=== PATIENT | female | born 1960 | race Caucasian/White ===

== ENCOUNTER → 2024-03-02 | Outpatient (CLI) | payer SELFPAY ==
--- NOTE | 2024-03-02 12:05 | RAD_ITS ---
STUDY: X-RAY CHEST REASON FOR EXAM: Female, 63 years old. Cough, wheeze TECHNIQUE: PA and lateral views of the chest. COMPARISON: None. FINDINGS: Scattered calcified granulomas. There is no demonstrated pleural abnormality. Normal size heart. Normal mediastinum and samuel. Normal visualized pulmonary arteries. There is atherosclerotic tortuosity of the aortic arch and descending thoracic aorta. There are degenerative changes of the visualized thoracic spine. Normal visualized ribs, clavicles, and shoulders. There is no demonstrated abnormality of the visualized soft tissue structures of the upper abdomen. RAD/Chest PA and Lateral IMPRESSION: No acute abnormality is seen. Electronically Signed: Rusty Fontenot MD at 8:54 EST ,
== END | disposition home or self-care (01) ==
PROVIDERS: PCP Internal Medicine; Referring Provider Internal Medicine; Visit Provider Internal Medicine
DX: R05.9 Cough, unspecified (principal); J06.9 Acute upper respiratory infection, unspecified
CPT/HCPCS: 71046

== ENCOUNTER → 2024-12-12 | Outpatient (CLI) | payer MEDICARE, SELFPAY ==
--- OUTSIDE RECORDS SUMMARY | 2024-12-12 12:46 | XMS RPT_ITS | CCD ---
Author Organization [facility] Care Team Providers Care Fusion Juncture Grinder Name Role Phone Caro Medina Unavailable Emily Boudreaux Primary Care Provider Meka Gray Unavailable Latia Mai Unavailable [phone] Caro Medina Unavailable Caro Medina Unavailable Ministerio, Rosana Cynthia Unavailable [phone] Caro Medina Unavailable EMILY BOUDREAUX Primary Care Unavailable HANS CHUCKY A Attending Unavailable EMILY BOUDREAUX Attending Unavailable EMILY BOUDREAUX Primary Care Unavailable EMILY BOUDREAUX Attending Unavailable EMILY BOUDREAUX Primary Care Unavailable JAMA MAI Attending Unavailabl e EMILY BOUDREAUX Primary Care Unavailable Ministerio, Rosana Cynthia Unavailable Jama Mai Unavailable [facility] Primary Care Provide r Unavailable ZAINA PAREKH Attending Unavailable ZAINA PAREKH Referring Unavailable EMILY BOUDREAUX Primary Care Unavailable Caro Medina MD Unavailable Rosana Mandel MD Cynthia Unavailable Caro Medina MD Unavailable [phone] [facility] Primary Care Provide r Unavailable Cyrus Link DO, Alan Unavailable Cyrus Link DO, Alan Unavailable [phone] [facility] Primary [facility] Unav ailable IVANNA WILKINS Attending Unavailab France Caraballo DO Primary Care Provider Pau KEYES Latia Cabayne Primary Care Provider Adam LOVE, Caro Gold Primary Care Provider Emily Boudreaux DO Primary Care Provider Adam LOVE, Caro Gold Unavailable Ministerio LOVE, Rosana Ramírezeti Unavailable Adam LOVE, Caro Gold Unavailable Anny Nguyen MD Primary Care Provider [phone] [facility] Primary Care Provide r Unavailable Cyrus Link DO, Alan Unavailable Cyrus Link DO, Alan Unavailable [phone] ZHOU MAI Attending Unavailab [facility] Care Unav ailable Monique Tapia Referring Unavailable Monique Tapia Attending Unavailable Monique Tapia Primary Care Unavailable Allergies Allergy Classification Reported Allergen(s) Allergy Type Date of Onset Reaction(s) Facility (14 sources) sulfamethoxazole / trimethoprim; Translations: [SULFAMETHOXAZOLE-T RIMETHOPRIM] Propensity to adverse reactions to drug 03-09-19 15 GI Intolerance [facility] Work Phone: (12 sources) Sulfonamides (Antibiotic); Translations: [SULFA (SULFONAMIDE ANTIBIOTICS)] Propensity to adverse reactions to drug 08-17-19 15 Rash, GI Intolerance [facility] Work Phone: (14 sources) tetracycline; Translations: [TETRACYCLINE] Propensity to adverse reactions to drug 08-17-19 15 GI Intolerance [facility] Work Phone: (14 sources) PROPOXYPHENE N-ACETAMINOPHEN; Translations: [PROPOXYPHENE N-ACETAMINOPHEN] Propensity to adverse reactions to drug 03-09-19 15 GI Intolerance [facility] Work Phone: (15 sources) Clindamycin; Translations: [Unknown] Drug Allergy 12-24-19 18 GI Intolerance [facility] (2 sources) Sulfonamides (Antibiotic) Propensity to adverse reactions to drug 08-17-19 15 GI Intolerance [facility] Medications Current Medications Medication Drug Class(es) Dates Sig (Normalized) Sig (Original) acetaminophen 325 mg / HYDROcodone bitartrate 5 mg oral tablet (1 source) Opioid Agonist Start: 0 End: 0 take 1 tablet by mouth every six hours as needed for pain HYDROcodone-acetamin ophen (NORCO) 5-325 mg per tablet Indications: Nasal pain Take 1 (one) tablet by mouth every 6 (six) hours as needed for pain . 20 tablet 0 03/11/2019 03/14/2019 Active [id number] 200 actuat albuterol 0.09 mg/actuat metered dose inhaler (1 source) beta2-Adrenergic Agonist take 2 puff(s) by inhalation every six hours as needed for wheezing albuterol 90 mcg/actuation inhaler Inhale 2 puffs every 6 (six) hours as needed for wheezing . 0 Active albuterol 90 mcg/actuation inhaler (2 sources) take 2 puff(s) by inhalation every six hours as needed for wheezing albuterol 90 mcg/actuation inhaler Inhale 2 puffs every 6 (six) hours as needed for wheezing . 0 Active amoxicillin 875 mg / clavulanate 125 mg oral tablet (2 sources) Penicillin-class Antibacterial Start: 0 End: 0 take 1 tablet by mouth twice daily amoxicillin-clavulan ate (AUGMENTIN) 875-125 mg per tablet Take 1 (one) tablet by mouth 2 (two) times a day for 5 days . 10 tablet 0 03/10/2019 03/15/2019 Active 90 day estradiol 0.912506 mg/hr vaginal ring (7 sources) Estrogen Start: 8 End: 0 estradiol (ESTRING) 2 mg (7.5 mcg /24 hour) vaginal ring Indications: Menopause Insert 1 (one) ring into the vagina every 3 (three) months. 1 each 3 11/15/2018 11/15/2019 Active fluconazole 150 mg oral tablet (1 source) Azole Antifungal Start: 6 fluconazole (DIFLUCAN) 150 MG tablet One tablet qod x 3. 3 tablet 0 01/14/2016 Active indomethacin 25 mg oral capsule (10 sources) Nonsteroidal Anti-inflammatory Drug take 1 capsule by mouth three times daily as needed for headache indomethacin (INDOCIN) 25 MG capsule Take 25 mg by mouth 3 (three) times a day as needed (HEADACHE) . 0 Active metroNIDAZOLE 500 mg oral tablet (1 source) Nitroimidazole Antimicrobial Start: 9 End: 9 take 1 tablet by mouth twice daily at mealtime metroNIDAZOLE (FLAGYL) 500 MG tablet Take 1 (one) tablet (500 mg total) by mouth 2 (two) times a day with meals for 7 days . 14 tablet 0 01/17/2019 01/24/2019 Active prochlorperazine 10 mg oral tablet (3 sources) Phenothiazine take 5 mg by mouth every six hours as needed for nausea prochlorperazine (COMPAZINE) 10 MG tablet Take 5 mg by mouth every 6 (six) hours as needed for nausea . 0 Active levothyroxine sodium 0.088 mg oral tablet (13 sources) l-Thyroxine Start: 9 End: 1 take 1 tablet by mouth once daily levothyroxine (SYNTHROID, LEVOTHROID) 88 MCG tablet Indications: Hypothyroidism, unspecified type Take 1 (one) tablet (88 mcg total) by mouth once daily . 90 tablet 3 09/14/2019 Active Start: 03-08-2016 take 1 tablet by bessy once daily SYNTHROID 88 mcg tablet Take 1 tablet (88 mcg total) by mouth daily. 90 tablet 3 03/08/2016 Active Start: 01-12-2015 End: 03-08-2016 take 1 tablet by mouth once daily SYNTHROID 88 mcg tablet Take 1 tablet (88 mcg total) by mouth daily. 90 tablet 3 04/03/2015 03/08/2016 Discontinued (Reorder (Suppress CancelRx Message to Pharmacy)) Completed/Discontinued Medications Medication Drug Class(es) Dates Sig (Normalized) Sig (Original) acetaminophen 500 mg oral tablet (1 source) End: 12-24-2015 take 2 tablets by mouth every six hours as needed for pain acetaminophen (TYLENOL) 500 MG tablet Indications: pain Take 500 mg by mouth every 6 (six) hours as needed for pain. 2 tabs prn pain ReasonsPain 0 12/24/2015 Discontinued ascorbic acid 1000 mg oral tablet (8 sources) Vitamin C End: 01-26-2020 take 1 tablet by mouth once daily ascorbic acid, vitamin C, (vitamin C) 1000 MG tablet Take 1,000 mg by mouth daily. 0 01/26/2020 Discontinued (Therapy completed) b complex vitamins capsule (8 sources) End: 01-26-2020 take 1 capsule by mouth once daily b complex vitamins capsule Take 1 capsule by mouth daily. 0 01/26/2020 Discontinued (Therapy completed) take 1 capsule by mouth once tavares ly b complex vitamins capsule Take 1 capsule by mouth daily. 0 Active cyclobenzaprine hydrochloride 10 mg oral tablet (1 source) Muscle Relaxant Start: 03-09-2014 End: 08-02-2015 take 1 tablet by mouth once daily cyclobenzaprine (FLEXERIL) 10 MG tablet Indications: Back pain Take 1 tablet (10 mg total) by mouth daily. Send to Jeff please 30 tablet 1 03/09/2014 08/02/2015 Discontinued (Reorder (Suppress CancelRx Message to Pharmacy)) diclofenac sodium 0.01 mg/mg topical gel (8 sources) Nonsteroidal Anti-inflammatory Drug Start: 06-16-2018 End: 01-26-2020 diclofenac sodium 1 % Gel Indications: Polyarthralgia Apply 2 (two) g topically 4 (four) times a day . 100 g 3 06/16/2018 01/26/2020 Discontinued (Therapy completed) Folic Acid (8 sources) End: 01-26-2020 FOLIC ACID ORAL Take by mouth. 0 01/26/2020 Discontinued (Therapy completed) FOLIC ACID ORAL Take by mouth. 0 Active oxyCODONE hydrochloride 5 mg oral tablet (1 source) Opioid Agonist Start: 12-19-2014 End: 12-24-2015 take 1 tablet by mouth every eight hours as needed for pain oxyCODONE (ROXICODONE) 5 MG immediate release tablet Take 1 tablet (5 mg total) by mouth every 8 (eight) hours as needed for pain 90 tablet 0 12/19/2014 12/24/2015 Discontinued phenylephrine hydrochloride 5 mg/ml nasal spray (1 source) alpha-1 Adrenergic Agonist Start: 03-10-2019 End: 03-10-2019 phenylephrine (ESTELA-SYNEPHRINE) 0.5 % nasal spray 2 spray promethazine hydrochloride 25 mg oral tablet (3 sources) Phenothiazine Start: 03-12-2019 End: 03-11-2020 take 1 tablet by mouth every six hours as needed for nausea and nausea promethazine (PHENERGAN) 25 MG tablet Indications: Nausea Take 1 (one) tablet (25 mg total) by mouth every 6 (six) hours as needed for nausea . 30 tablet 0 03/12/2019 01/26/2020 Discontinued (Alternate therapy) 1000 ml sodium chloride 9 mg/ml injection (1 source) Start: 01-27-2020 End: 01-27-2020 sodium chloride 0.9% (NS) Problems Active Problems Problem Classification Problem Date Documented Date Episodic/Chronic Acquired foot deformities (1 source) Acquired bilateral pes planus; Translations: [Flat feet] Diseases of white blood cells (11 sources) Leukopenia; Translations: [Neutropenic disorder] Onset: 03-02-2019 03-02-2019 Chronic Disorders of lipid metabolism (12 sources) Hyperlipidemia; Translations: [Hyperlipidemia, unspecified] Onset: 03-09-2015 03-09-2015 Chronic Immunizations and screening for infectious disease (2 sources) Encounter for screening for human papillomavirus (HPV); Translations: [Encounter for screening for human papillomavirus (HPV)] Onset: 01-11-2024 Episodic Other connective tissue disease (1 source) Contracture of right Achilles tendon; Translations: [Achilles tendon contracture, right] Other connective tissue disease (1 source) Tendinitis of right posterior tibial tendon; Translations: [Posterior tibial tendinitis of right leg] Other ear and sense organ disorders (1 source) Impacted cerumen in right ear; Translations: [Impacted cerumen, right ear] Episodic Other screening for suspected conditions (not mental disorders or infectious disease) (13 sources) Abnormal cervical Papanicolaou smear; Translations: [Unspecified abnormal cytological findings in specimens from cervix uteri] Onset: 10-11-2009 Resolved: 12-23-2017 12-23-2017 Episodic Other upper respiratory disease (2 sources) Bleeding from nose; Translations: [Nosebleed] Episodic Sexually transmitted infections (not HIV or hepatitis) (2 sources) Cervical high risk human papillomavirus (HPV) DNA test positive; Translations: [Cervical high risk human papillomavirus (HPV) DNA test positive] Onset: 01-11-2024 Episodic Spondylosis; intervertebral disc disorders; other back problems (12 sources) Degeneration of intervertebral disc; Translations: [Degeneration of intervertebral disc] Onset: 03-09-2014 03-09-2014 Chronic Thyroid disorders (12 sources) Hypothyroidism; Translations: [Hypothyroidism, unspecified] Onset: 03-09-2014 03-09-2014 Chronic Unclassified (12 sources) Patient encounter status; Translations: [Encounter for medical examination to establish care] Onset: 12-23-2017 12-23-2017 Unclassified (1 source) Cough, unspecified; Translations: [Cough, unspecified] Onset: 03-24-2024 Past or Other Problems Problem Classification Problem Date Documented Date Episodic/Chronic Fracture of lower limb (20 sources) Fracture of ankle; Translations: [Fracture of tibial plateau] Onset: 08-16-2014 Resolved: 12-23-2017 01-14-2016 Episodic Genitourinary symptoms and ill-defined conditions (12 sources) Blood in urine; Translations: [Hematuria, unspecified] Onset: 03-25-2011 03-26-2016 Episodic Headache, including migraine (12 sources) Benign exertional headache; Translations: [Primary exertional headache] Onset: 12-24-2015 12-24-2015 Episodic Inflammatory diseases of female pelvic organs (1 source) Vaginitis; Translations: [Vaginosis] Episodic Malaise and fatigue (12 sources) Asthenia; Translations: [Weakness] Onset: 03-27-2016 Resolved: 12-23-2017 03-27-2016 Episodic Other and unspecified benign neoplasm (12 sources) Benign neoplasm of colon; Translations: [Benign neoplasm of colon, unspecified] Onset: 03-09-2014 Resolved: 12-23-2017 03-09-2014 Episodic Other connective tissue disease (13 sources) Tibialis tendinitis; Translations: [Pain in limb] Onset: 05-03-2012 Resolved: 12-23-2017 03-09-2014 Episodic Other connective tissue disease (11 sources) Pain in limb; Translations: [Pain in unspecified limb] Onset: 03-23-2014 Resolved: 12-23-2017 12-23-2017 Episodic Other female genital disorders (1 source) Atypical glandular cells on cervical Papanicolaou smear; Translations: [Abnormal glandular Papanicolaou smear of cervix] Onset: 10-11-2009 03-09-2014 Episodic Other female genital disorders (11 sources) Vaginal discharge; Translations: [Other specified noninflammatory disorders of vagina] Onset: 01-18-2019 02-09-2019 Episodic Other nervous system disorders (12 sources) Personal history of other diseases of the nervous system and sense organs; Translations: [H/O: glaucoma] Onset: 03-09-2015 03-09-2015 Episodic Other non-traumatic joint disorders (2 sources) Ankle pain; Translations: [Knee pain] Onset: 01-14-2016 01-14-2016 Episodic Other non-traumatic joint disorders (9 sources) Knee pain; Translations: [Chronic pain of left knee] Onset: 03-27-2016 03-27-2016 Episodic Other non-traumatic joint disorders (11 sources) Chronic ankle pain; Translations: [Pain in left ankle and joints of left foot] Onset: 01-14-2016 01-14-2016 Episodic Other non-traumatic joint disorders (2 sources) Pain in left knee; Translations: [Pain in joint, lower leg] Onset: 03-27-2016 03-27-2016 Episodic Skin and subcutaneous tissue infections (20 sources) Abscess of buttock; Translations: [Cutaneous abscess of buttock] Onset: 03-09-2015 Resolved: 01-14-2016 01-14-2016 Episodic Spondylosis; intervertebral disc disorders; other back problems (12 sources) Low back pain; Translations: [Low back pain] Onset: 01-14-2016 Resolved: 12-23-2017 01-14-2016 Episodic Sprains and strains (11 sources) Strain of neck muscle; Translations: [Strain of muscle, fascia and tendon at neck level, initial encounter] Onset: 03-05-2018 Resolved: 03-02-2019 03-05-2018 Episodic Unclassified (12 sources) Family history of osteoporosis; Translations: [Family history of osteoporosis] Onset: 07-14-2009 03-09-2014 Episodic Results Test Name Value Interpretation Reference Range Facility Chest PA and Lateralon 03-02 Chest PA and Lateral [facility] [address] [place] [address] Chest PA and Lateral MR#: [id number] Acct: [id number] Name: TITO DE LA CRUZ Rep #: [id number] : 1960 F 63 From: Rusty haines MD PCP: Dr. Monique Tapia MD Status: REG CLI Study: Chest PA and Lateral Date of Exam: 03/02/24 Exam# [id number] Ordering Dr: Monique Tapia MD [id number] STUDY: X-RAY CHEST REASON FOR EXAM: Female, 63 years old. Cough, wheeze TECHNIQUE: PA and lateral views of the chest. COMPARISON: None. FINDINGS: Scattered calcified granulomas. There is no demonstrated pleural abnormality. Normal size heart. Normal mediastinum and samuel. Normal visualized pulmonary arteries. There is atherosclerotic tortuosity of the aortic arch and descending thoracic aorta. There are degenerative changes of the visualized thoracic spine. Normal visualized ribs, clavicles, and shoulders. There is no demonstrated abnormality of the visualized soft tissue structures of the upper abdomen. RAD/Chest PA and Lateral IMPRESSION: No acute abnormality is seen. Electronically Signed: Rusty Fontenot MD at 8:54 EST , CC: Dr. Monique Tapia MD Residential Glazier: Signed Normal [facility] THINPREP PAP SMEARon 024 THINPREP PAP SMEAR Gynecologic Cytology Report Case: [id number] Authorizing Provider: Zhou Mai MD Collected: 01/06/2024 Ordering Location: [facility] Received: 01/11/2024 09:33 AM Hospital Lab First Screen: [place], TECHNOLOGIST Pathologist: Jamaal Crespo MD Specimen: THINPREP PAP SMEAR, Cervix Satisfactory for evaluation; endocervical/transfor mation zone component present Atypical squamous cells of undetermined significance Acute inflammation The Pap smear is a screening test for the detection of cervical cancer and its precursor lesions. False positive and false negative results can occur. The test should be performed at regular intervals, and positive results should be confirmed before definitive therapy. Additional testing methods may be helpful in detecting abnormalities or in clinical management. The specimen has been analyzed by the ThinPrep imaging system, an automated imaging and review system which assists the laboratory in evaluating cells on ThinPrep tests. Following automated imaging selected hayes from every slide are reviewed by a tobacco stripper hand. Specimen processing and Primary Screening performed at: [facility] - [address] [place] [address] HPV 16 : Negative HPV 18 : Negative HPV, Other HR Types : Positive Assay performed using Lindsey Gumaro 4800 system utilizing Real-Time PCR to amplify target HPV DNA. This system specifically identifies HPV16 and HPV18 while concurrently detecting the other twelve high risk types (31,33,35,39,45,51,52 ,56,58,59,66,68). These HPV results have been electronically added to this report as an aid for patient management. HPV testing performed at: [facility] - [address] [place] [address] - Yes Abnormal [facility] Comment on above: Performed By: #### [id number] #### [facility] [address] [address] Carlos Alberto Miranda M.D. [id number] [facility] [address] [place] [address] Jonah Disla M.D. [id number] Ear wax removalOrdered By: Suzie Perez on 10-22-2021 Interpretation and review of laboratory results Normal [facility] SCAN OTHER ORDERSon 01-17-20 Ordered by an unspecified provider. [facility] Mammography Screening Bilate ralon 03-29-2019 No mammographic evidence of malignancy. BIRADS: BIRADS - CATEGORY 1 Negative, no evidence of malignancy. Normal interval follow-up is recommended in 12 months. OVERALL ASSESSMENT - NEGATIVE A letter of notification will be sent to the patient regarding the results. [facility], along with the National [employer] Network, the [employer], and [facility], recommend annual screening mammograms for women age 40 and older. Workstation ID: [id number] [facility] EXAMINATION: BILATERAL DIGITAL SCREENING MAMMOGRAM 03/29/2019 TECHNIQUE: CC and MLO views of the left and right breasts were obtained. Computer aided detection was utilized in the interpretation of this exam. COMPARISON: 10/30/2016, 07/27/2013 HISTORY: Screening. FINDINGS: There are scattered areas of fibroglandular density. There is no new dominant mass, suspicious microcalcification, or area of architectural distortion. [facility] Hemoglobin and Hematocriton 03-10-2019 Hematocrit (Bld) [Volume fraction] 39.9 % 36 - 46 % [facility] Hemoglobin (Bld) [Mass/Vol] 13.0 g/dL 12 - 16 g/dL [facility] Interpretation and review of laboratory results Normal [facility] PT/INRon 03-10-2019 INR Coag (PPP) [Relative time] 0.9 {INR} [facility] Interpretation and review of laboratory results Normal [facility] PT Coag (PPP) [Time] 12.[address] [facility] During the induction phase of oral anticoagulation, the INR may not reflect the anticoagulation status of the patient. Therapeutic ranges for INR's are: Most clinical situations: INR 2.0-3.0 Mechanical Prosthetic Valve: INR 2.5-3.5 Critical: INR >5.0 [facility] REFLEX ONLY -- HIGH RISK HPV WITH GENOTYPE 16,18on 03-02-2019 HPV 16 DNA CHARLES+probe Ql (Cvx) Negative Negative [facility] HPV 16+18+31+33+35+39+45 +51+52+56+58+59+68 DNA Probe+sig amp Ql (Cvx) Positive Abnormal Negative [facility] HPV 18 DNA CHARLES+probe Ql (Cvx) Negative Negative [facility] Interpretation and review of laboratory results Abnormal [facility] Assay performed usin g [employer] Gumaro 4800 system utilizing Real-Time PCR to amplify target HPV DNA. This system specifically identifies HPV16 and HPV18 while concurrently detecting the other twelve high risk types (31,33,35,39,45,51,52 ,56,58,59,66,68). [facility] VAGINITIS DNA PROBESon 01-18 Minerva sp DNA Probe+sig amp Ql (Vag fld) Negative Negative [facility] G. vaginalis DNA Probe+sig amp Ql (Vag fld) Negative Negative [facility] Interpretation and review of laboratory results Normal [facility] T. vaginalis DNA Probe+sig amp Ql (Vag fld) Negative Negative [facility] POC Urinalysis Dipstick, Aut oon 01-17-2019 Bilirubin Ql (U) Negative Negative [facility] Glucose Ql (U) Negative Normal, Negative mg/dL [facility] Hemoglobin Ql (U) Trace-intact Abnormal Negative [facility] Interpretation and review of laboratory results Abnormal [facility] Ketones Ql (U) Negative Negative mg/dL [facility] Leukocyte esterase Test strip Ql (U) Negative Negative [facility] Nitrite Ql (U) Negative Negative [facility] pH (U) 6.0 [pH] [facility] Protein Ql (U) Negative Negative mg/dL [facility] alth Specific gravity (U) [Rel density] 1.010 [facility] Urobilinogen Qn (U) 2.0 mg/dL <2.0, 0. 2, Normal, Negative, 1.0, 2.0, <1.0 [facility] MR Ankle Right Without Contr mylene 11-12-2018 1. Tenosynovitis of the posterior tibialis tendon sheath with underlying partial tearing and tendinosis of the posterior tibialis tendon. There is also fluid signal seen within the spring ligament suggesting partial tearing. The majority of the fibers appear intact. 2. Mild tendinosis of the Achilles tendon without discrete tear identified. 3. Mild hindfoot and midfoot osteoarthritis with small subtalar effusion. Workstation ID: [id number] [facility] EXAMINATION: MRI OF THE RIGHT ANKLE WITHOUT CONTRAST 11/12/2018 TECHNIQUE: Multiplanar multisequence MRI of the right ankle was performed without the administration of intravenous contrast. COMPARISON: None. HISTORY: ORDERING SYSTEM PROVIDED HISTORY: Posterior tibial tendinitis of right leg; TECHNOLOGIST PROVIDED HISTORY: Illness/Other Acuity: Acute Reason for Exam: Achilles tendon contracture, right; Flat feet; Posterior tibial tendinitis of right leg Type of Encounter: Initial Additional signs and symptoms: right ankle pain and swelling ORDERING SYSTEM PROVIDED DIAGNOSIS CODES: M76.821 Posterior tibial tendinitis of right leg M21.41 Flat feet M21.42 Flat feet M67.01 Achilles tendon contracture, right FINDINGS: SYNDESMOTIC LIGAMENTS: The anterior-inferior tibiofibular ligament, interosseous membrane and posterior-inferior tibiofibular ligaments are normal. LATERAL COLLATERAL LIGAMENT COMPLEX: The anterior talofibular ligament, calcaneofibular ligament and posterior talofibular ligaments are without acute abnormality. DELTOID LIGAMENT COMPLEX: The superficial and deep components of the deltoid ligament complex are intact. SINUS TARSI AND SPRING LIGAMENT: Normal fat signal within the sinus tarsi. Fluid signal is present within the spring ligament which is suspicious for partial tearing. The majority of the fibers are intact. MEDIAL TENDONS: Partial tearing of the posterior tibialis tendon superimposed on tendinosis. There is also tenosynovitis of the posterior tibialis tendon sheath and surrounding soft tissue edema. Flexor digitorum longus and flexor hallucis longus tendons are intact. LATERAL TENDONS: The peroneus longus and brevis tendons are intact. ANTERIOR TENDONS: The tibialis anterior, extensor hallucis longus and extensor digitorum longus tendons are normal in position, morphology and signal. ACHILLES TENDON: The Achilles tendon demonstrates intrasubstance signal along its mid to distal portion compatible with tendinosis. No significant fluid identified within the retrocalcaneal bursa. PLANTAR FASCIA: The medial and lateral bundles of the plantar fascia are normal in morphology and signal. There is no evidence of acute plantar fasciitis or tear. No evidence of plantar fascial nodules. Small plantar calcaneal heel spur. TARSAL TUNNEL: There are no obstructing lesions within the tarsal tunnel. BONE MARROW: No osseous contusion, fracture, or suspicious marrow occupying lesion identified. JOINT SPACES: Alignment of the joint is anatomic. Mild hindfoot and midfoot osteoarthritis. Small subtalar effusion. Cystic change along the lateral aspect of the talonavicular joint (images 16 and 17 series 4; images 19 through 22 series 8) which are most compatible with small ganglion/synovial cysts. [facility], Rad In Fujdarrel Speechq - 11/12/2018 2:22 PM EDT EXAMINATION: MRI OF THE RIGHT ANKLE WITHOUT CONTRAST 11/12/2018 TECHNIQUE: Multiplanar multisequence MRI of the right ankle was performed without the administration of intravenous contrast. COMPARISON: None. HISTORY: ORDERING SYSTEM PROVIDED HISTORY: Posterior tibial tendinitis of right leg; TECHNOLOGIST PROVIDED HISTORY: Illness/Other Acuity: Acute Reason for Exam: Achilles tendon contracture, right; Flat feet; Posterior tibial tendinitis of right leg Type of Encounter: Initial Additional signs and symptoms: right ankle pain and swelling ORDERING SYSTEM PROVIDED DIAGNOSIS CODES: M76.821 Posterior tibial tendinitis of right leg M21.41 Flat feet M21.42 Flat feet M67.01 Achilles tendon contracture, right FINDINGS: SYNDESMOTIC LIGAMENTS: The anterior-inferior tibiofibular ligament, interosseous membrane and posterior-inferior tibiofibular ligaments are normal. LATERAL COLLATERAL LIGAMENT COMPLEX: The anterior talofibular ligament, calcaneofibular ligament and posterior talofibular ligaments are without acute abnormality. DELTOID LIGAMENT COMPLEX: The superficial and deep components of the deltoid ligament complex are intact. SINUS TARSI AND SPRING LIGAMENT: Normal fat signal within the sinus tarsi. Fluid signal is present within the spring ligament which is suspicious for partial tearing. The majority of the fibers are intact. MEDIAL TENDONS: Partial tearing of the posterior tibialis tendon superimposed on tendinosis. There is also tenosynovitis of the posterior tibialis tendon sheath and surrounding soft tissue edema. Flexor digitorum longus and flexor hallucis longus tendons are intact. LATERAL TENDONS: The peroneus longus and brevis tendons are intact. ANTERIOR TENDONS: The tibialis anterior, extensor hallucis longus and extensor digitorum longus tendons are normal in position, morphology and signal. ACHILLES TENDON: The Achilles tendon demonstrates intrasubstance signal along its mid to distal portion compatible with tendinosis. No significant fluid identified within the retrocalcaneal bursa. PLANTAR FASCIA: The medial and lateral bundles of the plantar fascia are normal in morphology and signal. There is no evidence of acute plantar fasciitis or tear. No evidence of plantar fascial nodules. Small plantar calcaneal heel spur. TARSAL TUNNEL: There are no obstructing lesions within the tarsal tunnel. BONE MARROW: No osseous contusion, fracture, or suspicious marrow occupying lesion identified. JOINT SPACES: Alignment of the joint is anatomic. Mild hindfoot and midfoot osteoarthritis. Small subtalar effusion. Cystic change along the lateral aspect of the talonavicular joint (images 16 and 17 series 4; images 19 through 22 series 8) which are most compatible with small ganglion/synovial cysts. IMPRESSION: 1. Tenosynovitis of the posterior tibialis tendon sheath with underlying partial tearing and tendinosis of the posterior tibialis tendon. There is also fluid signal seen within the spring ligament suggesting partial tearing. The majority of the fibers appear intact. 2. Mild tendinosis of the Achilles tendon without discrete tear identified. 3. Mild hindfoot and midfoot osteoarthritis with small subtalar effusion. Workstation ID: [id number] [facility] Vital Signs Date Time Vital Sign Value Performing Clinician Fabrizio quintana 10-22-2021 18:02-0400 Body mass index (BMI) [Ratio] 28.98 kg/m2 Ivanna Tokarski PA-C Work Phone: [facility] 10-22-2021 18:02-0400 Body temperature 97.7 [degF] Ivanna Tokarski PA-C Work Phone: [facility] 10-22-2021 18:02-0400 Body weight 83.92 kg Ivanna Tokarski PA-C Work Phone: [facility] 10-22-2021 18:02-0400 Diastolic blood pressure 64 mm[Hg] Ivanna Tokarski PA-C Work Phone: [facility] 10-22-2021 18:02-0400 Heart rate 66 /min Ivanna Tokarski PA-C Work Phone: [facility] 10-22-2021 18:02-0400 Respiratory rate 16 /min Ivanna Tokarski PA-C Work Phone: [facility] 10-22-2021 18:02-0400 SaO2% (BldA) [Mass fraction] 98 % Ivanna Tokarski PA-C Work Phone: [facility] 10-22-2021 18:02-0400 Systolic blood pressure 112 mm[Hg] Ivanna Tokarski PA-C Work Phone: [facility] 01-27-2020 08:35-0500 Body Temperature 97 [degF] Amira Allison [facility] 01-27-2020 08:35-0500 BP Diastolic 74 mm[Hg] [facility] 01-27-2020 08:35-0500 BP Systolic 108 mm[Hg] [facility] 01-27-2020 08:35-0500 Pulse (Heart Rate) 48 /min [facility] 01-27-2020 08:35-0500 Pulse [facility] 99 % [facility] 01-27-2020 08:35-0500 Respiratory Rate 9 /min [facility] 01-27-2020 07:11-0500 BMI (Body Mass Index) 28.19 kg/m2 [facility] 01-27-2020 07:11-0500 Body weight 81.65 kg [facility] 01-27-2020 07:11-0500 Height 170.2 cm [facility] 03-12-2019 11:28-0500 BMI (Body Mass Index) 28.19 kg/m2 [facility] 03-12-2019 11:28-0500 Body Temperature 98.1 [degF] [facility] 03-12-2019 11:28-0500 Body weight 81.65 [facility] 03-12-2019 11:28-0500 BP Diastolic 87 mm[Hg] [facility] 03-12-2019 11:28-0500 BP Systolic 130 mm[Hg] [facility] 03-12-2019 11:28-0500 Height 170.2 cm [facility] 03-12-2019 11:28-0500 Pulse (Heart Rate) 68 /min [facility] 03-12-2019 11:28-0500 Pulse Oximetry 93 % [facility] 03-12-2019 11:28-0500 Respiratory Rate 16 /min [facility] 03-10-2019 11:09-0500 BP Diastolic 79 mm[Hg] [facility] Comment on above: Simultaneous filing. User may not have seen previous data. 03-10-2019 11:09-0500 BP Systolic 122 mm[Hg] [facility] Comment on above: Simultaneous filing. User may not have seen previous data. 03-10-2019 09:54-0500 Body Temperature 97.81 [degF] [facility] 03-10-2019 09:54-0500 Pulse (Heart Rate) 75 /min Rupa [facility] 03-10-2019 09:54-0500 Pulse Oximetry 100 % Rupa [facility] 03-10-2019 09:54-0500 Respiratory Rate 18 /min Rupa [facility] 03-04-2019 15:30-0500 BMI (Body Mass Index) 29.13 kg/m2 Jama Mai [facility] 03-04-2019 15:30-0500 Body weight 84.37 kg Jama Mai [facility] 03-04-2019 15:30-0500 BP Diastolic 90 mm[Hg] Jama Mai [facility] 03-04-2019 15:30-0500 BP Systolic 133 mm[Hg] Jama Mai [facility] 03-04-2019 15:30-0500 Height 170.2 cm Jama Mai [facility] 03-04-2019 15:30-0500 Pulse (Heart Rate) 68 /min Jama Mai [facility] 03-04-2019 15:30-0500 Pulse Oximetry 96 % Jama Mai [facility] 03-01-2019 08:25-0500 BMI (Body Mass Index) 29.13 kg/m2 03-01-2019 08:25-0500 Body Temperature 98.49 [degF] 03-01-2019 08:25-0500 Body weight 84.37 kg 03-01-2019 08:25-0500 BP Diastolic 65 mm[Hg] 03-01-2019 08:25-0500 BP Systolic 92 mm[Hg] 03-01-2019 08:25-0500 Pulse (Heart Rate) 66 /min 03-01-2019 08:25-0500 Pulse Oximetry 95 % 03-01-2019 08:25-0500 Respiratory Rate 16 /min 01-17-2019 15:36-0500 BMI (Body Mass Index) 29.29 kg/m2 [facility] 01-17-2019 15:36-0500 Body Temperature 97.7 [degF] [facility] 01-17-2019 15:36-0500 [facility] 01-17-[facility] 15:36-0500 BP Diastolic 86 mm[Hg] Chucky Blood [facility] 01-17-2019 15:36-0500 BP Systolic 124 mm[Hg] [facility] 01-17-2019 15:36-0500 Pulse (Heart Rate) 60 /min [facility] 01-17-2019 15:36-0500 Pulse Oximetry 99 % [facility] Encounters Encounter Date Encounter Type Care Provider Facility Start: 03-02-2024 End: 03-02-2024 ambulatory Monique Regina Facility:[facility] Start: 01-11-2024 End: 01-11-2024 ambulatory ZHOU MAI [facility] Start: 10-22-2021 End: 10-22-2021 ambulatory [facility] Start: 10-22-2021 End: 10-22-2021 Office outpatient visit 15 minutes Ivanna Wilkins PA-C Work Phone: [facility] Comment on above: Right ear impacted c erumen (Primary Dx) Start: 04-25-2020 End: 04-25-2020 Orders Only Karen Esquivel Work Phone: [facility] Start: 01-27-2020 End: 01-27-2020 Subsequent hospital visit by physician Amira Allison Work Phone: [facility] Start: 03-29-2019 End: 03-30-2019 ambulatory ZAINA PAREKH [facility] Start: 03-29-2019 End: 03-29-2019 Subsequent hospital visit by physician Zaina Parekh Work Phone: [facility] Comment on above: Healthcare jimi chadwick Start: 03-12-2019 End: 03-12-2019 Emergency department patient visit Randee Crews Work Phone: [facility] Comment on above: Encounter for remova l of nasal packing (Primary Dx) Start: 03-10-2019 End: 03-10-2019 Emergency department patient visit Rupa Soto Work Phone: [facility] Comment on above: Epistaxis (Primary D x) Start: 03-04-2019 End: 03-04-2019 Patient encounter procedure JAMA FRANK PAU [facility] Start: 03-04-2019 End: 03-04-2019 Office outpatient visit 15 minutes Jama Mai Work Phone: [facility] Comment on above: Nosebleed (Primary D x) Start: 03-02-2019 Patient encounter status Ivanna Wilkins PA-C Work Phone: [facility] Start: 03-01-2019 End: 03-01-2019 Patient encounter procedure EMILY MARQUESCKER [facility] Start: 03-01-2019 End: 03-01-2019 Periodic preventive med est patient 40-64yrs Emily Boudreaux Work Phone: [facility] [place] Comment on above: Healthcare maintenan ce (Primary Dx); Other neutropenia (HCC); Leukopenia, unspecified type Start: 02-22-2019 [facility] Start: 01-17-2019 End: 01-17-2019 Patient encounter procedure EMILY [facility] Start: 01-17-2019 End: 01-17-2019 Office outpatient visit 15 minutes Chucky A Blood Work Phone: [facility] Comment on above: Vaginosis (Primary D x); Vaginal discharge Start: 11-12-2018 End: 11-12-2018 Subsequent hospital visit by physician Jonah Rodriguez Work Phone: [facility] Comment on above: Posterior tibial ten dinitis of right leg; Flat feet; Achilles tendon contracture, right Start: 10-30-2016 End: 10-30-2016 Ambulatory Caro Medina Work Phone: [facility] Start: 04-03-2015 Catalina ochoa DO Work Phone: [facility] Procedures Date Procedure Procedure Detail Performing Clinician Start: 10-22-2021 EAR WAX REMOVAL Ivanna Tripathi Franky ROLLE Work Phone: Start: 08-05-2021 Microscopic observat ion [Identifier] in Cervix by Cyto stain Ivanna Franky ROLLE Work Phone: Start: 09-14-2020 Microalbumin [Mass/v olume] in Urine by Test strip Ivanna Wilkins PA-C Work Phone: Start: 01-27-2020 End: 01-27-2020 Colonoscopy Amira Patlola Red [place] Work Phone: Start: 01-17-2020 SCAN OTHER ORDERS Provi erick Not In System Start: 03-29-2019 MG Breast - bilatera l screening Emily Boudreaux Work Phone: Start: 03-29-2019 Mammography Darciram R glenny Start: 03-10-2019 Hemoglobin and Hemat ocrit panel - Blood Rupa Chandra [employer] Work Phone: Start: 03-10-2019 INR in Platelet poor plasma by Coagulation assay Rupa Chandra [employer] Work Phone: Start: 03-01-2019 Iadna human papillom avirus types 16 & 18 only Emily Boudreaux Work Phone: Start: 03-01-2019 Microscopic observat ion [Identifier] in Cervix by Cyto stain Zaina Parekh Start: 01-17-2019 Urnls dip stick/tabl et rgnt auto w/o microscopy Chucky A Blood Work Phone: Start: 01-17-2019 Gardnerella vaginali s rRNA assay [facility] Work Phone: Start: 11-12-2018 Mri any jt lower ext rem w/o contrast matrl Jonah Rodriguez Work Phone: Start: 01-09-2017 Microscopic observat ion [Identifier] in Cervix by Cyto stain [facility] Start: 11-09-2016 Microscopic observat ion [Identifier] in Cervix by Cyto stain Jonah Rodriguez Start: 10-30-2016 Mammography Jonah tucker Plan of Treatment Date Care Activity Detail Author Start: 08-05-2026 Screening for malign ant neoplasm of cervix Pap Smear [facility] Start: 03-19-2026 Tetanus vaccination [facility] Start: 01-26-2025 Screening for malign ant neoplasm of colon [facility] Start: 03-01-2024 Screening for malign ant neoplasm of cervix PAP SMEAR [facility] Start: 01-09-2022 Screening for malign ant neoplasm of cervix PAP SMEAR [facility] Start: 10-24-2021 Influenza vaccination Sequenti al Influenza Vaccine (#1) [facility] Start: 09-14-2021 Urine screening for protein Urine Microalbumin [facility] Start: 09-13-2021 History and physical examination, annual for health maintenance Wellness Visit [facility] Start: 03-29-2020 Screening for malign ant neoplasm of breast Mammogram [facility] Start: 03-29-2020 Screening mammography Mammogram [facility] Start: 03-01-2020 History and physical examination, annual for health maintenance Wellness Visit [facility] Start: 01-10-2020 Screening for malign ant neoplasm of cervix PAP SMEAR [facility] Start: 11-10-2019 Screening for malign ant neoplasm of cervix PAP SMEAR [facility] Start: 10-25-2019 Influenza vaccinatio n given Sequential Influenza Vaccine (#1) [facility] Start: 12-16-2018 Screening colonoscopy COLONOSCOPY O [facility] Work Phone: Start: 12-16-2018 Screening for malign ant neoplasm of colon Colorectal Cancer Screening: Colonoscopy [facility] Start: 10-24-2018 Influenza vaccinatio n given SEQUENTIAL INFLUENZA VACCINE (#1) [facility] Start: 10-30-2017 Screening mammography Mammogram O [facility] Start: 03-19-2017 History and physical examination, annual for health maintenance Wellness Visit [facility] Start: 10-24-2016 Influenza vaccination SEQUENTI AL INFLUENZA VACCINE (#1) [facility] Work Phone: Start: 07-11-2009 Administration of he rpes zoster vaccine Zoster Vaccines (1 of 2) [facility] Start: 07-11-2009 Screening for malign ant neoplasm of colon [facility] Start: 03-05-2002 Screening for malign ant neoplasm of cervix PAP SMEAR [facility] Work Phone: Start: 07-11-1978 Administration of he rpes zoster vaccine Zoster Vaccines (1 of 2) [facility] Start: 1975 COVID-19 Vaccine (1 of 2) COVI D-19 Vaccine (1 of 2) [facility] Start: 07-11-1974 HIV screening HIV Screening [facility] Start: 1971 Adolescent depressio n screening assessment Depression Screening (PHQ9) [facility] Start: 1971 Depression screening using PHQ-9 (Patient Health Questionnaire 9) score Depression Screening (PHQ-2/9) [facility] Start: 07-11-1965 Pneumococcal Vaccine : Ped or At-Risk (1 - PCV) Pneumococcal Vaccine: Ped or At-Risk (1 - PCV) [facility] Start: 01-12-1960 COVID-19 Vaccine (#1) COVID-19 Vacci ne (#1) [facility] Start: 1959 Depression screening using PHQ-9 (Patient Health Questionnaire 9) score DEPRESSION SCREENING (PHQ9) [facility] Start: 1959 Screening for malign ant neoplasm of colon [facility] Start: 1960 HEPATITIS C SCREENING HEPATITIS C SC REENING [facility] Work Phone: Start: 1960 Tetanus vaccination TETANUS EVERY 10 YR [facility] Work Phone: End: 03-01-2020 Complete blood count with white cell differential, manual CBC and Differential Lab Routine Other neutropenia (HCC) 1 Occurrences starting 03/01/2019 until 03/01/2020 [facility] Comment on above: 1 Occurrences starti ng 03/01/2019 until 03/01/2020 End: 10-30-2016 MG Breast - bilateral screening Mammography Screening Bilateral Routine Visit for screening mammogram Once for 1 Occurrences starting 10/30/2016 until 10/30/2016 [facility] Work Phone: MG Breast - bilatera l screening Mammography Screening Bilateral Routine Visit for screening mammogram 10/30/2016 2:29 PM EDT [facility] Work Phone: End: 04-29-2020 MG Breast - bilateral screening Mammography Screening Bilateral Imaging Routine Healthcare maintenance 1 Occurrences starting 03/01/2019 until 04/29/2020 [facility] Comment on above: 1 Occurrences starti ng 03/01/2019 until 04/29/2020 Microscopic examinat ion of vaginal Papanicolaou smear Thinprep Pap Smear Pathology and Cytology Routine Healthcare maintenance 03/01/2019 9:28 AM EST [facility] Immunizations Immunization Date Immunization Notes Care Provider Elier orta 03-01-2019 varicella-zoster gE (SHINGRIX-KIT) 0.5 mL Emily Boudreaux [facility] Payers Date Payer Category Payer Self-pay 2024 Unknown [id number] 2021 Unknown [id number] 2014 Unknown [id number] 2014 Unknown [facility] PREFERRED - ASSOCIATE PLAN xxxxxxxxx 2014-Present xxxxxxxxx [id number] 2014 Unknown [facility] EM[employer]OYEE PLAN - PREFERRED [id number] 2014-Present [id number] 2014 Unknown [id number] 1959 Unknown [id number] 3 1959 Unknown [id number] 3 1959 Unknown [id number] 3 1959 Unknown [id number] 3 1959 Unknown [id number] 2 1959 Unknown [id number] 3 Unknown [id number] 2 Social History Date Type Detail Facility Start: 03-09-2015 End: 10-30-2016 Tobacco smoking status NHIS Never smoker [facility] Work Phone: Start: 1960 Sex Assigned At Not on file O [employer] Work Phone: Start: 12-23-2017 End: 01-26-2020 Tobacco smoking status NHIS Former smoker [facility] Start: 03-09-2015 End: 12-23-2017 Alcohol intake Current drinker of alcohol (finding) [facility] Start: 11-23-2017 Tobacco Comment quit in the [facility] Start: 11-07-2014 Alcohol Comment Weekends, a fe w drinks a month [facility] End: 02-23-1979 History of tobacco use Current smoker [facility] Start: 03-09-2015 End: 01-27-2020 Cigarettes smoked current (pack per day) - Reported [facility] Start: 03-09-2015 End: 01-27-2020 Tobacco use and exposure Never used [facility] Start: 10-12-2021 End: 10-22-2021 Exposure to SARS-CoV-2 (event) Not sure [facility] End: 02-23-1979 History of tobacco use Cigarette Smoker [facility] Medical Equipment Procedure Code Equipment Code Equipment Origin al Text Equipment Identifier Dates Screw 3.5 X 14mm Locking Self-Tap Strdrv Rec - [id number] Start: 08-17-2014 Screw 2.7 X 16mm Locking Self-Tap T8 Strdrv Rec - [id number] Start: 08-17-2014 Screw 2.7 X 34mm Locking Self-Tap T8 Strdrv Rec - [id number] Start: 08-17-2014 Lcp Y-Plate Start: 08-17-2014 Screw 3.5 X 65mm Cortex Pelvic Self-Tap - [id number] Start: 08-17-2014 Screw 3.5 X 80mm Cortex Pelvic Self-Tap - [id number] Start: 08-17-2014 Screw 3.5 X 14mm Self-Tap Cortex - [id number] Start: 08-17-2014 Screw 3.5 X 44mm Cortex Self-Tap - [id number] Start: 08-17-2014 Screw 3.5 X 50mm Cortex Self-Tap - [id number] Start: 08-17-2014 Plate 81mm 7hl 1 /3 Tubular W/Collar Lcp - [id number] Start: 08-17-2014 Screw 2.4 X 30mm Cortex Self-Tap T8 Strdrv Rec - [id number] Start: 08-17-2014 Screw 2.4 X 38mm Cortex Self-Tap T8 Strdrv Rec - [id number] Start: 08-17-2014 Screw 3.5 X 14mm Locking Self-Tap Strdrv Rec - [id number] Start: 08-17-2014 Screw 2.7 X 16mm Locking Self-Tap T8 Strdrv Rec - [id number] Start: 08-17-2014 Screw 2.7 X 34mm Locking Self-Tap T8 Strdrv Rec - [id number] Start: 08-17-2014 Lcp Y-Plate [id number] Start: 08-17-2014 Screw 3.5 X 65mm Cortex Pelvic Self-Tap - [id number] Start: 08-17-2014 Screw 3.5 X 80mm Cortex Pelvic Self-Tap - [id number] Start: 08-17-2014 Screw 3.5 X 14mm Self-Tap Cortex - [id number] Start: 08-17-2014 Screw 3.5 X 44mm Cortex Self-Tap - [id number] Start: 08-17-2014 Screw 3.5 X 50mm Cortex Self-Tap - [id number] Start: 08-17-2014 Plate 81mm 7hl 1 /3 Tubular W/Collar Lcp - [id number] Start: 08-17-2014 Screw 2.4 X 30mm Cortex Self-Tap T8 Strdrv Rec - [id number] Start: 08-17-2014 Screw 2.4 X 38mm Cortex Self-Tap T8 Strdrv Rec - [id number] Start: 08-17-2014 Instructions 10-22-2021 Patient InstructionsAttachments Note Date & Type Note Facility 10-22-2021 Instructions Ivanna Wilkins PA-C - 10/22/2021 6:43 PM EDT Follow up as needed with PCP or ENT The following attachments cannot be sent through Care Everywhere.Earwax Blockage (Namibian)documented in this encounter [facility] History of Present illness Narrative 10-22-2021 Ivanna Wilkins PA-C - 10/22/2021 6:04 PM EDT Note Date & Type Note Facility 10-22-2021 History of Presen t illness Narrative Images from the original note were not included. Patient Name: [facility] Location: [place] [address] [facility] [address] Date Of : Date Of Visit: 1960 10/22/2021 MRN# Provider: [id number] Ivanna Wilkins PA-C Chief Complaint Patient presents with Ear Fullness Right ear fullness/clogged x "a few weeks" - today ear wouldn't open up. Denies any ear pain or dizziness. Assessment & Plan 1. Right ear impacted cerumen Ear wax removal No follow-ups on file. Medical Decision Making Otalgia, right - history and exam consistent with cerumen impaction - There is no perforations in TMs bilaterally . History and exam do not show any signs or symptoms of malignant otitis media, mastoiditis, meningitis, myringitis, masses or cholesteatoma. Patient does not have any hearing loss. Conversational hearing intact. - Discussed ear irrigation with patient and/or parent and educated the risk versus benefits. Discussed complications including tympanic membrane perforation, infection, worsening pain due to trauma of the irrigation. Patient verbalized understanding and was in agreement to proceed with the irrigation. Ceruminosis is noted. Wax is removed by syringing and manual debridement. Instructions for home care to prevent wax buildup are given. Patient expresses significant improvement following ear irrigation. Bilateral TMs intact, canals clear of cerumen, no secondary otitis noted at this time. Additional Clinical Comments Discussed over the counter medications for symptomatic management and side effects of medications. Recommended taking all medications with food and to stop medications if they develop any signs of an allergic reaction. Educated patient and/or guardian about signs and symptoms that would warrant further immediate evaluation. Recommended that they should return to urgent care, make an appointment with their family physician, or go to the emergency room if symptoms persist or get acutely worse. Recommended follow up within the next week with their PCP or to get established with a PCP soon in order to follow up appropriately. Subjective 61 y.o. female presents with Ear Fullness (Right ear fullness/clogged x "a few weeks" - today ear wouldn't open up. Denies any ear pain or dizziness. ) Right ear fullness x 2-3 weeks. No drainage, bleeding. No URI symptoms, fever or chills No recent swimming Ear Fullness There is pain in the right ear. This is a new problem. The current episode started 1 to 4 weeks ago. The problem has been waxing and waning. There has been no fever. Pertinent negatives include no abdominal pain, coughing, diarrhea, ear discharge, headaches, hearing loss, neck pain, rash, rhinorrhea, sore throat or vomiting. She has tried nothing for the symptoms. Review Of Systems Review of Systems Constitutional: Negative for appetite change, chills, diaphoresis, fatigue and fever. HENT: Positive for ear pain (right ear, clogged). Negative for congestion, ear discharge, hearing loss, rhinorrhea, sinus pressure, sinus pain and sore throat. Respiratory: Negative for cough. Gastrointestinal: Negative for abdominal pain, diarrhea and vomiting. Musculoskeletal: Negative for neck pain. Skin: Negative for rash. Neurological: Negative for headaches. Medical History Past Medical History: Diagnosis Date Arthritis Asthma exercised induced; rare Disease of thyroid gland Fractures left ankle, left knee Hypothyroidism Injury of back sciatica; resolved now Narrow angle glaucoma suspect, bilateral Periodontal disease PONV (postoperative nausea and vomiting) better with scop patch Past Surgical History: Procedure Laterality Date ANKLE SURGERY Left 2012 CERVICAL CONIZATION LOOP ELECTROSURGICAL EXCISION PROCEDURE 2013 COLONOSCOPY N/A 01/27/2020 Procedure: COLONOSCOPY W/O ANESTHESIA; Surgeon: Amira Allison MD; Location: [facility]; Service: Gastroenterology COSMETIC SURGERY 1993 TUMMY TUCK facial cyst X 2 last 2011 knee scope Right 1993 MOUTH SURGERY ORIF ANKLE FRACTURE Left 08/17/2014 Procedure: LEFT ANKLE OPEN REDUCTION INTERNAL FIXATION W/ SYNDESMOSIS ; Surgeon: Luis Carlos Landon MD; Location: [facility] [place] Main OR; Service: TONSILLECTOMY AND ADENOIDECTOMY WISDOM TOOTH EXTRACTION Patient Active Problem List Diagnosis Degeneration of intervertebral disc Hypothyroidism Family history of osteoporosis Hematuria Hyperlipidemia History of narrow angle glaucoma Benign exertional headache Chronic pain of left ankle Chronic pain of left knee Vaginal discharge Healthcare maintenance Leukopenia Social History Social History Tobacco Use Smoking status: Former Packs/day: 1.00 Years: 5.00 Pack years: 5.00 Types: Cigarettes Quit date: 02/23/1979 Years since quittin.6 Smokeless tobacco: Never Vaping Use Vaping Use: Never used Substance Use Topics Alcohol use: Yes Alcohol/week: 0.0 standard drinks Comment: Weekends, a few drinks a month Drug use: No Family History Family History Problem Relation Age of Onset Nephrolithiasis Mother Colon polyps Mother Mitral valve prolapse Mother Colon polyps Father Bladder Cancer Father Hypertension Father Nephrolithiasis Brother Hypertension Brother Surgical complications Neg Hx Anesthesia problems Neg Hx Heart disease Neg Hx Clotting disorder Neg Hx Deep vein thrombosis Neg Hx Pulmonary embolism Neg Hx Objective Physical Exam BP 112/64 (BP Location: Right arm, Patient Position: Sitting, BP Cuff Size: Adult) Pulse 66 Temp 97.7 F (36.5 C) (Tympanic) Resp 16 Wt 83.9 kg (185 lb) SpO2 98% BMI 28.98 kg/m Vision/Hearing Exam:No results found. Physical Exam Vitals and nursing note reviewed. Constitutional: General: She is not in acute distress. Appearance: Normal appearance. She is not ill-appearing, toxic-appearing or diaphoretic. HENT: Head: Normocephalic and atraumatic. Right Ear: No decreased hearing noted. No laceration, drainage, swelling or tenderness. No middle ear effusion. There is impacted cerumen. No foreign body. No mastoid tenderness. Tympanic membrane is not injected, scarred, perforated, erythematous, retracted or bulging. Left Ear: No decreased hearing noted. No laceration, drainage, swelling or tenderness. No middle ear effusion. There is no impacted cerumen. No foreign body. No mastoid tenderness. Tympanic membrane is not injected, scarred, perforated, erythematous, retracted or bulging. Ears: Comments: No signs of infection or perforation after irrigation Nose: Nose normal. No congestion or rhinorrhea. Mouth/Throat: Mouth: Mucous membranes are moist. Pharynx: No oropharyngeal exudate or posterior oropharyngeal erythema. Eyes: General: Right eye: No discharge. Left eye: No discharge. Conjunctiva/sclera: Conjunctivae normal. Cardiovascular: Rate and Rhythm: Normal rate. Pulses: Normal pulses. Pulmonary: Effort: Pulmonary effort is normal. Abdominal: General: Abdomen is flat. Musculoskeletal: General: Normal range of motion. Cervical back: Normal range of motion and neck supple. Skin: General: Skin is warm. Coloration: Skin is not jaundiced or pale. Findings: No bruising, erythema, lesion or rash. Neurological: Mental Status: She is alert and oriented to person, place, and time. Psychiatric: Mood and Affect: Mood normal. Behavior: Behavior normal. Thought Content: Thought content normal. Judgment: Judgment normal. Procedure Notes Procedures Results No results found for this or any previous visit (from the past 168 hour(s)). No orders to display Orders Placed This Visit Orders Placed This Encounter Procedures Ear wax removal Medication List At End Of Visit Current Outpatient Medications Medication Sig Dispense Refill albuterol 90 mcg/actuation inhaler Inhale 2 puffs every 6 (six) hours as needed for wheezing . indomethacin (INDOCIN) 25 MG capsule Take 25 mg by mouth 3 (three) times a day as needed (HEADACHE) . levothyroxine (SYNTHROID, LEVOTHROID) 88 MCG tablet Take 1 (one) tablet (88 mcg total) by mouth once daily . (Patient taking differently: Take 88 mcg by mouth every morning .) 90 tablet 3 prochlorperazine (COMPAZINE) 10 MG tablet Take 5 mg by mouth every 6 (six) hours as needed for nausea . No current facility-administered medications for this visit. There are no Patient Instructions on file for this visit. documented in this encounter [facility] Evaluation note Note Date & Type Note Facility Evaluation note Diagnosis Right ear impacted cerumen- Primary Impacted cerumen documented in this encounter [facility] Assessments Diagnosis Visit for screening mammogra m Diagnosis Posterior tibial tendinitis of right leg Flat feet Flat foot Achilles tendon contracture, right Contracture of tendon (sheath) Diagnosis Healthcare maintenance Other neutropenia (HCC) Other neutropenia Leukopenia, unspecified type Diagnosis Nosebleed Epistaxis Diagnosis Epistaxis Diagnosis Encounter for removal of nasal packing Diagnosis Healthcare maintenance Diagnosis Vaginosis Vaginal discharge Leukorrhea, not specified as infective Reason for Referral Status Reason Specialty Diagnoses / Procedures Referred By Contact Referred To Contact Pending Review Radiology Diagnoses Posterior tibial tendinitis of right leg Flat feet Achilles tendon contracture, right Procedures MR Ankle Right Without Contrast Jonah Rodriguez, DO [address] [place] [address] Status Reason Specialty Diagnoses / Procedures Referred By Contact Referred To Contact Pending Review Radiology Diagnoses Healthcare maintenance Procedures Mammography Screening Bilateral Vengal, Zaina Ramirez MD [address] [place] [address] Status Reason Specialty Diagnoses / Procedures Referred By Contact Referred To Contact Pending Review Central Scheduling Diagnoses Healthcare maintenance Procedures Mammography Screening Bilateral Venyvette, Zaina Ramirez MD [address] [place] [address] Central Scheduling [address] [place] [address] Advance Directives No Advanced Directives Records FoundDocuments on File Type Date Recorded 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 Advance Directives and Livin g Will 11/12/2018 1:05 PM Documents on File Type Date Recorded 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 Advance Directives and Livin g Will 11/12/2018 1:05 PM Documents on File Type Date Recorded 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 Advance Directives and Livin g Will 11/12/2018 1:05 PM Advance Directives and Livin g Will 03/10/2019 10:39 AM Documents on File Type Date Recorded 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 anation Advance Directives and Livin g Will 11/12/2018 1:05 PM Advance Directives and Livin g Will 03/12/2019 11:55 AM Documents on File Type Date Recorded 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 anation Advance Directives and Livin g Will 11/12/2018 1:05 PM Advance Directives and Livin g Will 03/29/2019 11:55 AM Documents on File Type Date Recorded 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 female Assessment/Plan: Problem List Items Addressed This Visit Other Healthcare maintenance - Primary CScope due (q5y)--patient will schedule with her GI. 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 LEEP in 2013. Friable cervix and hx abnormal PAP--will likely need colposcopy pending results of PAP/HPV and patient is aware of this. Relevant Orders Mammography Screening Bilateral Thinprep Pap Smear High Risk HPV with Genotype 16,18 (Completed) Leukopenia Patient has had benign leukopenia in past and relates to benadryl use. Labs in Epic show trend downward from 8 over past 4 years. Will repeat CBC and encouraged cessation of benadryl for sleep and replaced with OTC melatonin. Differential reassuring. No unexplained weight loss, LAD--will need surveillance in 1 year. Relevant Orders CBC and Differential Tito De La Cruz is a 58 y.o. female who presents for Chief Complaint Patient presents with Annual Exam HPI Patient is here for annual exam with no complaints and no concerns. 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 Has been back and forth between [place] and [place] to aid her 90 year old parents who have declining health and mom who is showing early changes c/w dimentia. ROS General: no fever, chills Eyes: no acute vision changes ENT: no dysphagia Cardiovascular: no chest pain, no LE edema Respiratory: no dyspnea, no cough Gastroenterology : no nausea, no vomiting, no abdominal pain, no melena, no hematochezia, no constipation or diarrhea Musculoskeletal: no joint or back pain Skin: no rash Neuro: no headaches, dizziness Psych: no depression or anxiety sx Urinary: no urinary complaints Patient Active Problem List Diagnosis Degeneration of intervertebral disc Hypothyroidism Family history of osteoporosis Hematuria Hyperlipidemia History of narrow angle glaucoma Benign exertional headache Chronic pain of left ankle Chronic pain of left knee Vaginal discharge Healthcare maintenance Leukopenia Past Surgical History: Procedure Laterality Date ANKLE SURGERY Left 2013 CERVICAL CONIZATION LOOP ELECTROSURGICAL EXCISION PROCEDURE 2013 COSMETIC SURGERY wt loss facial cyst X 2 last 2011 knee scope Right 1994 MOUTH SURGERY ORIF ANKLE FRACTURE Left 08/17/2014 Procedure: LEFT ANKLE OPEN REDUCTION INTERNAL FIXATION W/ SYNDESMOSIS ; Surgeon: Luis Carlos Landon MD; Location: [facility] [place] Main OR; Service: TONSILLECTOMY AND ADENOIDECTOMY WISDOM TOOTH EXTRACTION Social History Tobacco Use Smoking status: Former Smoker Smokeless tobacco: Never Used Tobacco comment: quit in the Substance Use Topics Alcohol use: Yes Alcohol/week: 0.0 standard drinks Comment: Weekends, a few drinks a month Drug use: No Tobacco Counseling: Counseling given: Not Answered Comment: quit in the Current Outpatient Medications Medication Sig Dispense Refill levothyroxine (SYNTHROID, LEVOTHROID) 88 MCG tablet Take 1 (one) tablet (88 mcg total) by mouth once daily . 30 tablet 3 ascorbic acid, vitamin C, (vitamin C) 1000 MG tablet Take 1,000 mg by mouth daily. b complex vitamins capsule Take 1 capsule by mouth daily. diclofenac sodium 1 % Gel Apply 2 (two) g topically 4 (four) times a day . (Patient not taking: Reported on 03/01/2019 .) 100 g 3 estradiol (ESTRING) 2 mg (7.5 mcg /24 hour) vaginal ring Insert 1 (one) ring into the vagina every 3 (three) months. (Patient not taking: Reported on 03/01/2019 .) 1 each 3 FOLIC ACID ORAL Take by mouth. indomethacin (INDOCIN) 25 MG capsule Take 25 mg by mouth 3 (three) times a day with meals. No current facility-administered medications for this visit. Physical Exam: BP 92/65 (BP Location: Left arm, Patient Position: Sitting, BP Cuff Size: Adult) Pulse 66 Temp 98.5 F (36.9 C) (Oral) Resp 16 Wt 84.4 kg (186 lb) SpO2 95% BMI 29.13 kg/m Wt Readings from Last 3 Encounters: 03/01/19 84.4 kg (186 lb) 01/17/19 84.8 kg (187 lb) 12/23/17 83 kg (183 lb) BP Readings from Last 3 Encounters: 03/01/19 92/65 01/17/19 124/86 12/23/17 104/77 Physical Exam Gen: No acute distress Head: normocephalic, atraumatic Eyes: sclera and conjunctiva clear, EOMI, PERRLA Ears: TM pearly arceo. Landmarks intact. Normal light reflex. Nose: naris patent, no drainage or swelling Mouth: oropharynx normal. Tonsils not enlarged. CV: Regular rate and rhythm. No clicks, rubs, gallops or murmurs. Lung: Clear to auscultation bilaterally. No wheezes, crackles, or rhonchi. Abdom: Soft, nontender, nondistended. Extremities: no edema Neuro: AAOx3. No focal deficit. Psych: mood and affect normal : External genitalia and vagina normal in appearance. Cervix with increased vascularity at 7 o'clock position. No other lesions noted. Very friable with PAP broom. Health Maintenance Due Topic Date Due DEPRESSION SCREENING (PHQ9) 1960 Zoster Vaccines (1 of 2) 07/11/2009 Wellness Visit 03/19/2017 Mammogram 10/30/2017 SEQUENTIAL INFLUENZA VACCINE (1) 10/24/2018 Colorectal Cancer Screening: Colonoscopy 12/16/2018 documented in this encounter* Jama Mai CNP - 03/04/2019 3:35 PM EST PATIENT NAME: Tito De La Cruz [facility] [address] [facility] [id number] : 1960 DATE OF VISIT: 03/04/2019 SS#: [id number] PROVIDER: Jama Mai CNP ASSESSMENT/PLAN 58 y.o. female Problem List Items Addressed This Visit None Visit Diagnoses Nosebleed - Primary No active nosebleed in office. Had patient wait around 20 minutes to see if the nosebleed will return. Had patient walk up and down the hallway to see if it would trigger a nosebleed. She did not have an active nosebleed throughout her visit in the office. Education provided on techniques to control nosebleeding. If she starts to experience posterior bloody drainage she is to report to the emergency room. ED precautions given. Avoid using tape to face. Return if symptoms worsen or fail to improve. SUBJECTIVE Chief Complaint Patient presents with Epistaxis pt states she was blowing her nose and it started bleeding. pt states about 9:00am this morning andhas been bleeding since. js HPI This is a 58-year-old female that presents with nose bleeding. Onset & Duration: Today at 0900 Characteristics/Symptoms: When blowing nose has had 3 episodes of nose bleeding over past couple weeks. Started bleeding at 0900 this am after blowing nose. Reports she had continued nosebleeding throughout the day. She reports the longest that her nose went without bleeding today was 30 minutes. Could not leave work as she was behind on her workload. Reports large blood clots from the nose. Reports she has noticed posterior bloody drainage and is swallowed blood clots. Not on blood thinners. Alleviating Factors: Tried packing nose with gauze and taping to face. Aggravating Factors: Last episode started when she started walking around. REVIEW OF SYSTEMS Review of Systems Constitutional: Negative for appetite change, chills and fever. HENT: Positive for nosebleeds. Respiratory: Negative for choking and shortness of breath. Cardiovascular: Negative for chest pain. Gastrointestinal: Negative for nausea and vomiting. Neurological: Negative for dizziness and light-headedness. MEDICAL ISSUES Past Medical History: Diagnosis Date Arthritis Asthma exercised induced years ago. 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 Social Needs Financial resource strain: Not on file Food insecurity Worry: Not on file Inability: Not on file Transportation needs Medical: Not on file Non-medical: Not on file Tobacco Use Smoking status: Former Smoker Smokeless tobacco: Never Used Tobacco comment: quit in the 70s Substance and Sexual Activity Alcohol use: Yes Alcohol/week: 0.0 standard drinks Comment: Weekends, a few drinks a month Drug use: No Sexual activity: Yes Partners: Male control/protection: Post-menopausal Lifestyle Physical activity Days per week: Not on file Minutes per session: Not on file Stress: Not on file Relationships Social connections Talks on phone: Not on file Gets together: Not on file Attends moravian service: Not on file Active member of club or organization: Not on file Attends meetings of clubs or organizations: Not on file Relationship status: Not on file Other Topics Concern Not on file Social History Narrative Not on file Patient's Medications New Prescriptions No medications on file Previous Medications ASCORBIC ACID, VITAMIN C, (VITAMIN C) 1000 MG TABLET Take 1,000 mg by mouth daily. B COMPLEX VITAMINS CAPSULE Take 1 capsule by mouth daily. DICLOFENAC SODIUM 1 % GEL Apply 2 (two) g topically 4 (four) times a day . ESTRADIOL (ESTRING) 2 MG (7.5 MCG /24 HOUR) VAGINAL RING Insert 1 (one) ring into the vagina every 3 (three) months. FOLIC ACID ORAL Take by mouth. INDOMETHACIN (INDOCIN) 25 MG CAPSULE Take 25 mg by mouth 3 (three) times a day with meals. LEVOTHYROXINE (SYNTHROID, LEVOTHROID) 88 MCG TABLET Take 1 (one) tablet (88 mcg total) by mouth once daily . Modified Medications No medications on file Discontinued Medications No medications on file ALLERGIES/INTOLERANCES Allergies Allergen Reactions Clindamycin GI Intolerance Propoxyphene N-Acetaminophen Other reaction(s): n/v Sulfamethoxazole-Trimethoprim GI Intolerance Nausea / vomiting Tetracycline GI Intolerance Sulfa (Sulfonamide Antibiotics) Rash OBJECTIVE BP (!) 133/90 Pulse 68 Ht 5' 7" Wt 84.4 kg (186 lb) SpO2 96% BMI 29.13 kg/m Physical Exam Vitals signs reviewed. Constitutional: General: She is not in acute distress. Appearance: She is well-developed. She is not diaphoretic. HENT: Head: Normocephalic and atraumatic. Comments: Slight erythema to bilateral maxillary region from tape use. Nose: No nasal deformity. Right Nostril: No epistaxis. Left Nostril: No epistaxis. Comments: Large blood clot removed from right nostril. There is no active bleeding to either nostril. There is no bloody drainage or clots seen in the posterior pharynx. Cardiovascular: Rate and Rhythm: Normal rate and regular rhythm. Heart sounds: Normal heart sounds. Pulmonary: Effort: Pulmonary effort is normal. Breath sounds: Normal breath sounds. Abdominal: General: Bowel sounds are normal. Palpations: Abdomen is soft. Tenderness: There is no abdominal tenderness. Skin: General: Skin is warm and dry. Neurological: Mental Status: She is alert and oriented to person, place, and time. PROCEDURE Procedures Results Recent Results (from the past 168 hour(s)) High Risk HPV with Genotype 16,18 Collection Time: 03/01/19 9:28 AM Result Value Ref Range HPV 16 Negative Negative HPV 18 Negative Negative HPV, Other HR Types Positive (A) Negative Comprehensive Metabolic Panel Collection Time: 03/03/19 1:40 PM Result Value Ref Range Sodium 140 135 - 145 mmol/L Potassium 4.1 3.5 - 5.1 mmol/L Chloride 103 98 - 108 mmol/L Bicarbonate 22 21 - 32 mmol/L Anion Gap 19 10 - 20 mmol/L Glucose 85 65 - 99 mg/dL BUN 23 8 - 25 mg/dL Creatinine 0.80 0.40 - 1.10 mg/dL eGFR 81 >=60 mL/min/1.73 m2 BUN/Creatinine Ratio 28.8 (H) 10.0 - 20.0 Total Protein 7.3 6.0 - 8.0 g/dL Albumin 4.8 3.2 - 5.2 g/dL Calcium 10.0 8.4 - 10.2 mg/dL Alkaline Phosphatase 90 40 - 150 U/L AST 12 0 - 45 U/L ALT 14 0 - 40 U/L Total Bilirubin 0.3 0.0 - 1.3 mg/dL Lipid Panel Collection Time: 03/03/19 1:40 PM Result Value Ref Range Cholesterol 354 (H) 100 - 199 mg/dL Triglycerides 71 30 - 150 mg/dL HDL 85 40 - 59 mg/dL Chol/HDL Ratio 4.2 ratio LDL Calculated 255 (H) 10 - 130 mg/dL Non HDL Cholesterol 269 mg/dL CBC Collection Time: 03/03/19 1:40 PM Result Value Ref Range WBC 4.65 4.50 - 11.00 K/mcL RBC 4.21 4.00 - 5.20 M/mcL Hemoglobin 13.4 12.0 - 16.0 g/dL Hematocrit 40.3 36.0 - 46.0 % MCV 95.7 80.0 - 100.0 fL MCH 31.8 26.0 - 34.0 pg MCHC 33.3 31.0 - 37.0 g/dL Platelets 212 150 - 400 K/mcL RDW - CV 13.0 11.6 - 14.8 % MPV 11.3 9.0 - 15.5 fL Nucleated RBC 0.0 % Nucleated RBC Abs 0.00 0.00 - 0.00 K/mcL ORDERS PLACED THIS VISIT No orders of the defined types were placed in this encounter. Current Outpatient Medications Medication Sig Dispense Refill ascorbic acid, vitamin C, (vitamin C) 1000 MG tablet Take 1,000 mg by mouth daily. b complex vitamins capsule Take 1 capsule by mouth daily. FOLIC ACID ORAL Take by mouth. indomethacin (INDOCIN) 25 MG capsule Take 25 mg by mouth 3 (three) times a day with meals. levothyroxine (SYNTHROID, LEVOTHROID) 88 MCG tablet Take 1 (one) tablet (88 mcg total) by mouth once daily . 30 tablet 3 diclofenac sodium 1 % Gel Apply 2 (two) g topically 4 (four) times a day . (Patient not taking: Reported on 03/01/2019 .) 100 g 3 estradiol (ESTRING) 2 mg (7.5 mcg /24 hour) vaginal ring Insert 1 (one) ring into the vagina every 3 (three) months. (Patient not taking: Reported on 03/01/2019 .) 1 each 3 No current facility-administered medications for this visit. For any new medications prescribed today, patient was educated about indications for the medication, how to take the medication and potential side effects of the medications. Jama Mai CNP documented in this encounter* Chucky Maxwell DO - 01/18/2019 2:20 PM EST Results reviewed and discussed with patient. * Chucky Maxwell DO - 01/17/2019 3:15 PM EST PATIENT NAME: Tito De La Cruz [facility] [address] [facility] [id number] : 1960 DATE OF VISIT: 01/17/2019 #: [id number] PROVIDER: Chucky Maxwell DO BP 124/86 Pulse 60 Temp 97.7 F (36.5 C) (Oral) Wt 84.8 kg (187 lb) SpO2 99% BMI 29.29 kg/m ASSESSMENT/PLAN 58 y.o. female Problem Vaginal Discharge Vaginal discharge for 10 days, similar to previous episodes of BV Exam deferred Test for vaginitis Hx of BV will go ahead and treat SUBJECTIVE Chief Complaint Patient presents with Vaginitis no concern for STD whitish dc/odor /10 days /RM Vaginal discharge Itchy, irritation going on for ten days, + odor Tried boric acid didn't help much Sexually active with condom use, No concern for STDs Last BV infection was years ago but feels similar Denies dysuria, denies vaginal bleeding REVIEW OF SYSTEMS Review of Systems Constitutional: Negative for chills and fever. Gastrointestinal: Negative for abdominal pain. Genitourinary: Positive for vaginal discharge. Negative for difficulty urinating, dysuria, pelvic pain, vaginal bleeding and vaginal pain. Skin: Negative for rash. Neurological: Negative for light-headedness. MEDICAL ISSUES Past Medical History: Diagnosis Date Arthritis Asthma exercised induced years ago. Disease of thyroid gland Fractures Glaucoma Hx of bone density study 10/2014 Normal Hx of colonoscopy 11/2013 Normal Hx of mammogram 10/2016 Negative Hypothyroidism 1999 Jessica's thyroiditis Injury of back Periodontal disease PONV (postoperative nausea and vomiting) better with patch Patient Active Problem List Diagnosis Degeneration of intervertebral disc Hypothyroidism Family history of osteoporosis Hematuria Hyperlipidemia History of narrow angle glaucoma Benign exertional headache Chronic pain of left ankle Chronic pain of left knee Encounter for medical examination to establish care Cervical strain Vaginal discharge SOCIAL HISTORY Social History Socioeconomic History Marital status: Spouse name: You Number of children: 0 Years of education: Not on file Highest education level: Not on file 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 Social Needs Financial resource strain: Not on file Food insecurity Worry: Not on file Inability: Not on file Transportation needs Medical: Not on file Non-medical: Not on file Tobacco Use Smoking status: Former Smoker Smokeless tobacco: Never Used Tobacco comment: quit in the 70s Substance and Sexual Activity Alcohol use: Yes Alcohol/week: 0.0 standard drinks Comment: Weekends, a few drinks a month Drug use: No Sexual activity: Yes Partners: Male control/protection: Post-menopausal Lifestyle Physical activity Days per week: Not on file Minutes per session: Not on file Stress: Not on file Relationships Social connections Talks on phone: Not on file Gets together: Not on file Attends moravian service: Not on file Active member of club or organization: Not on file Attends meetings of clubs or organizations: Not on file Relationship status: Not on file Other Topics Concern Not on file Social History Narrative Not on file FAMILY HISTORY Family History Problem Relation Age of Onset Nephrolithiasis Mother Colon polyps Mother Mitral valve prolapse Mother Colon polyps Father Bladder Cancer Father Hypertension Father Nephrolithiasis Brother Hypertension Brother Surgical complications Neg Hx Anesthesia problems Neg Hx Heart disease Neg Hx Clotting disorder Neg Hx Deep vein thrombosis Neg Hx Pulmonary embolism Neg Hx MEDICATIONS PRIOR TO VISIT Current Outpatient Medications on File Prior to Visit Medication Sig Dispense Refill ascorbic acid, vitamin C, (vitamin C) 1000 MG tablet Take 1,000 mg by mouth daily. b complex vitamins capsule Take 1 capsule by mouth daily. diclofenac sodium 1 % Gel Apply 2 (two) g topically 4 (four) times a day . 100 g 3 estradiol (ESTRING) 2 mg (7.5 mcg /24 hour) vaginal ring Insert 1 (one) ring into the vagina every 3 (three) months. 1 each 3 FOLIC ACID ORAL Take by mouth. indomethacin (INDOCIN) 25 MG capsule Take 25 mg by mouth 3 (three) times a day with meals. levothyroxine (SYNTHROID, LEVOTHROID) 88 MCG tablet Take 1 (one) tablet (88 mcg total) by mouth once daily . 30 tablet 3 No current facility-administered medications on file prior to visit. ALLERGIES/INTOLERANCES Allergies Allergen Reactions Clindamycin GI Intolerance Propoxyphene N-Acetaminophen Other reaction(s): n/v Sulfamethoxazole-Trimethoprim GI Intolerance Nausea / vomiting Tetracycline GI Intolerance Sulfa (Sulfonamide Antibiotics) Rash OBJECTIVE BP 124/86 Pulse 60 Temp 97.7 F (36.5 C) (Oral) Wt 84.8 kg (187 lb) SpO2 99% BMI 29.29 kg/m Physical Exam Constitutional: She appears well-developed and well-nourished. No distress. HENT: Head: Normocephalic and atraumatic. Eyes: Right eye exhibits no discharge. Left eye exhibits no discharge. No scleral icterus. Neck: Normal range of motion. Cardiovascular: Normal rate, regular rhythm and normal heart sounds. No murmur heard. Pulmonary/Chest: No respiratory distress. She has no wheezes. Abdominal: Soft. She exhibits no distension. There is no abdominal tenderness. Musculoskeletal: Normal range of motion. Lymphadenopathy: She has no cervical adenopathy. Neurological: She is alert. She exhibits normal muscle tone. Skin: Skin is warm. No rash noted. She is not diaphoretic. No erythema. Psychiatric: She has a normal mood and affect. PROCEDURE Procedures Results Recent Results (from the past 168 hour(s)) Vaginitis DNA Probes Collection Time: 01/17/19 3:45 PM Result Value Ref Range Trichomonas vaginalis Negative Negative Gardnerella vaginalis Negative Negative Minerva Species Negative Negative POC Urinalysis Dipstick, Auto Collection Time: 01/17/19 3:47 PM Result Value Ref Range Spec Grav, UA 1.010 1.005 - 1.025 pH, UA 6.0 5.0 - 7.0 Protein, UA Negative Negative mg/dL Glucose, UA Negative Normal, Negative mg/dL Ketones, UA Negative Negative mg/dL Bilirubin, UA Negative Negative Urobilinogen, UA 2.0 <2.0, 0.2, Normal, Negative, 1.0, 2.0, <1.0 mg/dL Blood, UA Trace-intact (A) Negative Nitrite, UA Negative Negative Leukocyte Esterase, UA Negative Negative ORDERS PLACED THIS VISIT Orders Placed This Encounter Procedures Vaginitis DNA Probes POC Urinalysis Dipstick, Auto documented in this encounter Instructions * Patient Instructions* Jama Mai, OVERSEAMER - 03/04/2019 4:19 PM EST Nosebleeds: Care Instructions Your Care Instructions Nosebleeds are common, especially if you have colds or allergies. Many things can cause a nosebleed. Some nosebleeds stop on their own with pressure. Others need packing. Some get cauterized (sealed).If you have gauze or other packing materials in your nose, you will need to follow up with your doctor to have the packing removed. You may need more treatment if you get nosebleeds a lot. The doctor has checked you carefully, but problems can develop later. If you notice any problems ornew symptoms, get medical treatment right away. Follow-up care is a chaves part of your treatment and safety. Be sure to make and go to all appointments, and call your doctor if you are having problems. It's also a good idea to know your test resultsand keep a list of the medicines you take. How can you care for yourself at home? If you get another nosebleed: ? Sit up and tilt your head slightly forward. This keeps blood from going down your throat. ? Use your thumb and index finger to pinch your nose shut for 10 minutes. Use a clock. Do not checkto see if the bleeding has stopped before the 10 minutes are up. If the bleeding has not stopped, pinch your nose shut for another 10 minutes. ? When the bleeding has stopped, try not to pick, rub, or blow your nose for 12 hours. Avoiding these things helps keep your nose from bleeding again. If your doctor prescribed antibiotics, take them as directed. Do not stop taking them just because you feel better. You need to take the full course of antibiotics. To prevent nosebleeds Do not blow your nose too hard. Try not to lift or strain after a nosebleed. Raise your head on a pillow while you sleep. Put a thin layer of a saline- or water-based nasal gel, such as NasoGel, inside your nose. Put it on the septum, which divides your nostrils. This will prevent dryness that can cause nosebleeds. Use a vaporizer or humidifier to add moisture to your bedroom. Follow the directions for cleaning the machine. Do not use aspirin, ibuprofen (Advil, Motrin), or naproxen (Aleve) for 36 to 48 hours after a nosebleed unless your doctor tells you to. You can use acetaminophen (Tylenol) for pain relief. Talk to your doctor about stopping any other medicines you are taking. Some medicines may make you more likely to get a nosebleed. Do not use cold medicines or nasal sprays without first talking to your doctor. They can make your nose dry. When should you call for help? Call 911 anytime you think you may need emergency care. For example, call if: You passed out (lost consciousness). Call your doctor now or seek immediate medical care if: You get another nosebleed and your nose is still bleeding after you have applied pressure 3 times for 10 minutes each time (30 minutes total). There is a lot of blood running down the back of your throat even after you pinch your nose and tilt your head forward. You have a fever. You have sinus pain. Watch closely for changes in your health, and be sure to contact your doctor if: You get nosebleeds often, even if they stop. You do not get better as expected. Where can you learn more? Log into your personal health record on [email or web address] and enter S156 in the "Education" box to learn more about "Nosebleeds: Care Instructions." Current as of: August 18, 2018 Content Version: 12.3 3786-2542 [employer]. Care instructions adapted under license by your healthcare professional. If you have questions about a medical condition or this instruction, always ask your healthcare professional. [employer] disclaims any warranty or liability for your use of this information. documented in this encounter* Patient Instructions* Hans Chuckycourtney Fuentes DO - 01/17/2019 3:42 PM EST Bacterial Vaginosis: Care Instructions Your Care Instructions Bacterial vaginosis is a type of vaginal infection. It is caused by excess growth of certain bacteria that are normally found in the vagina. Symptoms can include itching, swelling, pain when you urinate or have sex, and a hill or yellow discharge with a "fishy" odor. It is not considered an infection that is spread through sexual contact. Although symptoms can be annoying and uncomfortable, bacterial vaginosis does not usually cause other health problems. However, if you have it while you are , it can cause complications. While the infection may go away on its own, most doctors use antibiotics to treat it. You may have been prescribed pills or vaginal cream. With treatment, bacterial vaginosis usually clears up in 5 to 7 days. Follow-up care is a chaves part of your treatment and safety. Be sure to make and go to all appointments, and call your doctor if you are having problems. It's also a good idea to know your test resultsand keep a list of the medicines you take. How can you care for yourself at home? Take your antibiotics as directed. Do not stop taking them just because you feel better. You need to take the full course of antibiotics. Do not eat or drink anything that contains alcohol if you are taking metronidazole (Flagyl). Keep using your medicine if you start your period. Use pads instead of tampons while using a vaginal cream or suppository. Tampons can absorb the medicine. Wear loose cotton clothing. Do not wear nylon and other materials that hold body heat and moisture close to the skin. Do not scratch. Relieve itching with a cold pack or a cool bath. Do not wash your vaginal area more than once a day. Use plain water or a mild, unscented soap. Do not douche. When should you call for help? Watch closely for changes in your health, and be sure to contact your doctor if: You have unexpected vaginal bleeding. You have a fever. You have new or increased pain in your vagina or pelvis. You are not getting better after 1 week. Your symptoms return after you finish the course of your medicine. Where can you learn more? Log into your personal health record on [email or web address] and enter X360 in the "Education" box to learn more about "Bacterial Vaginosis: Care Instructions." Current as of: April 13, 2018 Content Version: 12.1 0426-3743 [employer]. Care instructions adapted under license by your healthcare professional. If you have questions about a medical condition or this instruction, always ask your healthcare professional. [employer] disclaims any warranty or liability for your use of this information. documented in this encounter Summary Purpose Family History No Family History Records FoundNo Family History Records FoundNo Family History Records FoundNo Family History Records FoundNo Family History Records Found Discharge Instructions * Instructions* Rupa Soto DO - 03/10/2019 Follow up here in the emergency department in 48 hours and with a primary care physician and ENT orreturn to the emergency department immediately with any new or worsening symptoms. You will need tofollow-up for your elevated blood pressure reading. * Attachments The following attachments cannot be sent through Care Everywhere. * Nosebleeds (Namibian) * Nasal Packing (Namibian) documented in this encounter* Instructions* Randee Crews MD - 03/12/2019 Please follow up with your family doctor or one of your choosing. You may find a provider through the [facility] Physician Referral Service by calling [phone] ([phone]) or by visiting [email or web address] Thank you for allowing us the opportunity to provide you with Emergency Care today. Follow up as discussed during your stay with your doctor or referral. This information is included in your discharge paperwork. Appropriate followup is essential in your continued care after today's visit. If you had any diagnostic studies ( Labs or Xray's, CAT scan, Ultrasound ) have your PCP (Primary Care Physician) review them with you since there may be results that require further follow up or investigation. Return to the Emergency Department at any point with worsening condition, change in symptoms, new symptoms or concerns. The physician and staff of the Emergency Department would like to thank you for choosing our facility for your health care needs. Our goal is to provide exceptional service. You may be receiving a survey in the mail following your visit. Because your feedback is very important to us, we hope you will take the time to complete and return the survey. If for any reason, you feel that you cannot rateus "VERY GOOD" or "5" for the service you received today, please let us know prior to your discharge. We are here 24 hours a day, 7 days a week, and are always here for you. Continue your medication. Keep your appointment with ENT. Return to the ED if you feel any symptoms. * Attachments The following attachments cannot be sent through Care Everywhere. * Nasal Packing (Namibian) documented in this encounter* Instructions* Yolanda Grimes RN - 01/27/2020 Learning About Sedation What is sedation? Sedation is medicine that helps you feel relaxed and comfortable. It may be used with an injection to numb the area or other medicine to reduce pain. It is often used in procedures like a colonoscopyor a biopsy. It is also used in many minor surgeries. You may be awake and able to talk with your care team. Or you may fall asleep. You might remember little, if anything, of the procedure. What are the levels of sedation? There are three levels of sedation. You may start at one level and go to a deeper level during yourprocedure. Your doctor may give you oxygen to make sure your blood has plenty of oxygen while you're sleepy. Minimal. In the lowest level of sedation, you are awake and relaxed and can do what the doctor asks you to do. You can understand questions and answer them. It can help you feel calm during your procedure. And it can be used if deeper levels of sedation are less safe for you. Minimal sedation is used for very minor procedures such as the removal of a small skin lesion or a vasectomy. Moderate. You are relaxed and feel drowsy. You may fall asleep, but someone can wake you easily. Afterward, you may not remember anything about your procedure. Moderate sedation is used for more uncomfortable procedures like small hernia repairs, some eye surgeries, or colonoscopies. Deep. You are asleep (unconscious) during your procedure. You will get oxygen and may need help with breathing. You probably won't remember anything. Deep sedation is used during procedures like hand or foot surgeries or tests that can make you veryuncomfortable. How do you prepare? Your doctor will tell you what to expect when you have sedation. You will be asked to sign a consent form that says you understand the risks. You will get instructions to help you prepare for your procedure. You'll be told when to stop eating or drinking. If you take medicine, you will be told what you can and can't take beforehand. Do not smoke for as long as possible, but at least 1 month, before your procedure. Smoking can increase your risk of problems under sedation and can delay your recovery. If you need help quitting, talk to your doctor about stop- smoking programs and medicines. These can increase your chances of quitting for good. Arrange for a friend or a family member to drive you home afterward. Don't plan to drive yourself. How is it done? Sedation is usually given in a vein in the arm (intravenously, or IV). It is often used with local or regional anesthesia. The local type numbs a small part of the body. The regional type blocks pain to a larger area of the body. With recruiting specialist levels of sedation, a doctor or nurse will watch your vital signs. This includes checking your breathing, blood pressure, and heart rate. With deeper levels, an anesthesia professional may be there during the procedure to help keep you safe. This is often called monitored anesthesia care (MAC). What are the risks? Serious problems are rare. They include breathing that slows or stops and an allergic reaction to the medicine. Some health issues may increase the risk of problems. These include: Smoking. Sleep apnea. This happens during sleep when a blocked airway causes breathing problems. Being overweight. What can you expect after sedation? After your procedure, you will have time to let the sedation wear off. You may feel some pain or discomfort from your procedure. If you have pain, don't be afraid to say so. Pain medicine works better if you take it before the pain gets bad. You may feel some of the side effects of sedation for a while. They include: Feeling tired or sleepy. Nausea and vomiting. This is rare and does not last long. You may be given medicine to help you feel better. A headache. If you've had sedation, wait [address] or operate heavy machinery, make important decisions, or sign legal documents. It takes time for the medicine's effects to completely wear off. Current as of: July 20, 2019 Content Version: 12.6 [employer]. Care instructions adapted under license by your healthcare professional. If you have questions about a medical condition or this instruction, always ask your healthcare professional. [employer] disclaims any warranty or liability for your use of this information. Learning About Colonoscopy What is a colonoscopy? A colonoscopy is a test (also called a procedure) that lets a doctor look inside your large intestine. The doctor uses a thin, lighted tube called a colonoscope. The doctor uses it to look for small growths called polyps, colon or rectal cancer (colorectal cancer), or other problems like bleeding. During the procedure, the doctor can take samples of tissue. The samples can then be checked for cancer or other conditions. The doctor can also take out polyps. How is a colonoscopy done? This procedure is done in a doctor's office or a clinic or hospital. You will get medicine to help you relax and not feel pain. Some people find that they don't remember having the test because of the medicine. The doctor gently moves the colonoscope, or scope, through the colon. The scope is also a small video camera. It lets the doctor see the colon and take pictures. How do you prepare for the procedure? You need to clean out your colon before the procedure so the doctor can see all of your colon. Thisprocess may start a day or two before the test. This depends on which "colon prep" your doctor recommends. To clean your colon, you stop eating solid foods and drink only clear liquids. You can have water, tea, coffee, clear juices, clear broths, flavored ice pops, and gelatin (such as Jell-O). Do not drink anything red or purple. The day or night before the procedure, you drink a large amount of a special liquid. This causes loose, frequent stools. You will go to the bathroom a lot. It's very important to drink all of the liquid. If you have problems drinking it, call your doctor. Some people don't go to work or do their usual activities on the day of the prep. Arrange to have someone take you home after the test. What can you expect after a colonoscopy? Your doctor will tell you when you can eat and do your usual activities. Drink a lot of fluid after the test to replace the fluids you may have lost during the colon prep. But don't drink alcohol. Your doctor will talk to you about when you'll need your next colonoscopy. The results of your testand your risk for colorectal cancer will help your doctor decide how often you need to be checked. After the test, you may be bloated or have gas pains. You may need to pass gas. If a biopsy was done or a polyp was removed, you may have streaks of blood in your stool (feces) for a few days. If polyps were taken out, your doctor may tell you to avoid taking aspirin and nonsteroidal anti-inflammatory drugs (NSAIDs) for 7 to 14 days. Problems such as heavy rectal bleeding may not occur until several weeks after the test. This isn'tcommon. But it can happen after polyps are removed. Follow-up care is a chaves part of your treatment and safety. Be sure to make and go to all appointments, and call your doctor if you are having problems. It's also a good idea to know your test resultsand keep a list of the medicines you take. Where can you learn more? Log into your personal health record on [email or web address] and enter Z368 in the "Education" box to learn more about "Learning About Colonoscopy." Current as of: June 22, 2019 Content Version: 12.6 [employer]. Care instructions adapted under license by your healthcare professional. If you have questions about a medical condition or this instruction, always ask your healthcare professional. [employer] disclaims any warranty or liability for your use of this information. documented in this encounter Additional Source Comments Reason for Visit (unrecogniz ed section and content) Status Reason Specialty Diagnoses / Procedures Referred By Contact Referred To Contact Pending Review Radiology Diagnoses Posterior tibial tendinitis of right leg Flat feet Achilles tendon contracture, right Procedures MR Ankle Right Without Contrast Jonah Rodriguez, [address] [place] [address] Reason Comments Annual Exam Reason Comments Epistaxis pt states she was bl owing her nose and it started bleeding. pt states about 9:00am this morning and has been bleeding since. js Reason Comments Epistaxis Reason Comments needs rhino rocket removed Status Reason Specialty Diagnoses / Procedures Referred By Contact Referred To Contact Pending Review Central Scheduling Diagnoses Healthcare maintenance Procedures Mammography Screening Bilateral Vengal, Zaina Ramirez MD [address] [place] [address] Central Scheduling [address] [place] [address] Status Reason Specialty Diagnoses / Procedures Referre d By Contact Referred To Contact Diagnoses Z86.010 Procedures MD COLONOSCOPY FLX DX W/COLLJ SPEC WHEN PFRMD COLONOSCOPY W/O ANESTHESIA Reason Comments Vaginitis no concern for STD w hitish dc/odor /10 days /RM Reason Comments Ear Fullness Right ear fullness/c logged x "a few weeks" - today ear wouldn't open up. Denies any ear pain or dizziness. Reason Comments Medication Refill Assessment & Plan Note - Emily Boudreaux DO - 03/02/2019 8:29 PM ESTAssessment & Plan Note - Emily Boudreaux DO - 03/02/2019 8:27 PM EST Miscellaneous Notes (unrecog nized section and content) Associated Problem(s): Healthcare maintenance CScope due (q5y)--patient will schedule with her GI. 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 LEEP in 2013. Friable cervix and hx abnormal PAP--will likely need colposcopy pending results of PAP/HPV and patient is aware of this. Associated Problem(s): Leukopenia Patient has had benign leukopenia in past and relates to benadryl use. Labs in [facility] show trend downward from 8 over past 4 years. Will repeat CBC and encouraged cessation of benadryl for sleep and replaced with OTC melatonin. Differential reassuring. No unexplained weight loss, LAD--will need surveillance in 1 year. documented in this encounter INFORMATION SOURCE (unrecogn ized section and content) DATE [facility] DATE CREATED AUTHOR AUTHOR'S ORGANIZ ATION 08/06/2021 [facility] DATE CREATED AUTHOR AUTHOR'S ORGANIZ ATION 10/23/2021 [facility] DATE CREATED AUTHOR AUTHOR'S ORGANIZ ATION 01/16/2024 [facility] DATE CREATED AUTHOR AUTHOR'S ORGANIZ ATION 03/27/2024 [facility] Peoples, Rupa Corazon, DO - 03/10/2019 10:41 AM Randee Durán RN - 03/10/2019 9:52 AM Randee Cueto MD - 03/12/2019 12:04 PM Loren Mckeon RN - 03/12/2019 11:30 AM EST ED Notes (unrecognized secti on and content) ED PROVIDER NOTE [facility] EMERGENCY DEPARTMENT NAME: Tito De La Cruz AGE: 58 y.o. : 1960 VISIT DATE: 03/10/2019 CSN: [id number] PCP: Emily Boudreaux DO Chief Complaint Patient presents with Epistaxis HPI Patient is a 58-year-old female with a history of hypothyroidism, asthma, and arthritis who presents with a nosebleed that started earlier today after blowing her nose. She states she thinks the blood was coming out of her right nare. She states she has had nosebleeds off and on for the past 3 weeks. She denies any recent head or face injuries. She denies the use of blood thinning medications. She states she has had intermittent nosebleeds during the wintertime. She denies any headache, dizziness, vision changes, chest pain, shortness of breath, fevers, chills, nausea, vomiting, abdominal pain, or any changes with urination or bowel habits. She denies any numbness, tingling, or weakness in her extremities. Past Medical History: Diagnosis Date Arthritis Asthma exercised induced years ago. Disease of thyroid gland Fractures Glaucoma Hypothyroidism 2000 Jessica's thyroiditis Injury of back Periodontal disease PONV (postoperative nausea and vomiting) better with patch Past Surgical History: Procedure Laterality Date ANKLE SURGERY Left 2013 CERVICAL CONIZATION LOOP ELECTROSURGICAL EXCISION PROCEDURE 2013 COSMETIC SURGERY wt loss facial cyst X 2 last 2011 knee scope Right 1994 MOUTH SURGERY ORIF ANKLE FRACTURE Left 08/17/2014 Procedure: LEFT ANKLE OPEN REDUCTION INTERNAL FIXATION W/ SYNDESMOSIS ; Surgeon: Luis Carlos Landon MD; Location: [facility] [facility] Main OR; Service: TONSILLECTOMY AND ADENOIDECTOMY WISDOM TOOTH EXTRACTION Family History Problem Relation Age of Onset Nephrolithiasis Mother Colon polyps Mother Mitral valve prolapse Mother Colon polyps Father Bladder Cancer Father Hypertension Father Nephrolithiasis Brother Hypertension Brother Surgical complications Neg Hx Anesthesia problems Neg Hx Heart disease Neg Hx Clotting disorder Neg Hx Deep vein thrombosis Neg Hx Pulmonary embolism Neg Hx Social History Socioeconomic History Marital status: Spouse name: You Number of children: 0 Years of education: Not on file Highest education level: Not on file 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 Social Needs Financial resource strain: Not on file Food insecurity Worry: Not on file Inability: Not on file Transportation needs Medical: Not on file Non-medical: Not on file Tobacco Use Smoking status: Former Smoker Smokeless tobacco: Never Used Tobacco comment: quit in the 70s Substance and Sexual Activity Alcohol use: Yes Alcohol/week: 0.0 standard drinks Comment: Weekends, a few drinks a month Drug use: No Sexual activity: Yes Partners: Male control/protection: Post-menopausal Lifestyle Physical activity Days per week: Not on file Minutes per session: Not on file Stress: Not on file Relationships Social connections Talks on phone: Not on file Gets together: Not on file Attends moravian service: Not on file Active member of club or organization: Not on file Attends meetings of clubs or organizations: Not on file Relationship status: Not on file Other Topics Concern Not on file Social History Narrative Not on file Previous Medications Medication Sig ascorbic acid, vitamin C, (vitamin C) 1000 MG tablet Take 1,000 mg by mouth daily. b complex vitamins capsule Take 1 capsule by mouth daily. diclofenac sodium 1 % Gel Apply 2 (two) g topically 4 (four) times a day . (Patient not taking: Reported on 03/01/2019 .) estradiol (ESTRING) 2 mg (7.5 mcg /24 hour) vaginal ring Insert 1 (one) ring into the vagina every 3 (three) months. (Patient not taking: Reported on 03/01/2019 .) FOLIC ACID ORAL Take by mouth. indomethacin (INDOCIN) 25 MG capsule Take 25 mg by mouth 3 (three) times a day with meals. levothyroxine (SYNTHROID, LEVOTHROID) 88 MCG tablet Take 1 (one) tablet (88 mcg total) by mouth once daily . Allergies Allergen Reactions Clindamycin GI Intolerance Propoxyphene N-Acetaminophen Other reaction(s): n/v Sulfamethoxazole-Trimethoprim GI Intolerance Nausea / vomiting Tetracycline GI Intolerance Sulfa (Sulfonamide Antibiotics) Rash Review of Systems Constitutional: Negative for chills and fever. HENT: Positive for nosebleeds. Negative for sore throat. Eyes: Negative for pain and visual disturbance. Respiratory: Negative for cough and shortness of breath. Cardiovascular: Negative for chest pain and palpitations. Gastrointestinal: Negative for abdominal pain, constipation, diarrhea, nausea and vomiting. Genitourinary: Negative for dysuria and frequency. Musculoskeletal: Negative for back pain and neck pain. Skin: Negative for rash. Neurological: Negative for dizziness, weakness, numbness and headaches. Patient Vitals for the past 24 hrs: BP Temp Temp src Pulse Resp SpO2 03/10/19 1109 122/79 03/10/19 0954 (!) 138/94 97.8 F (36.6 C) Oral 75 18 100 % Physical Exam Constitutional: General: She is not in acute distress. Appearance: She is well-developed. She is not ill-appearing, toxic-appearing or diaphoretic. HENT: Head: Normocephalic and atraumatic. Right Ear: Tympanic membrane, ear canal and external ear normal. Left Ear: Tympanic membrane, ear canal and external ear normal. Nose: Comments: Fresh blood noted in the bilateral nares without sites of active bleeding. Dried blood noted in the posterior oropharynx. No nasal bone tenderness. No septal perforation or hematoma noted. Mouth/Throat: Mouth: Mucous membranes are moist. Pharynx: Oropharynx is clear. No oropharyngeal exudate or posterior oropharyngeal erythema. Eyes: General: Right eye: No discharge. Left eye: No discharge. Extraocular Movements: Extraocular movements intact. Conjunctiva/sclera: Conjunctivae normal. Pupils: Pupils are equal, round, and reactive to light. Neck: Musculoskeletal: Normal range of motion and neck supple. No neck rigidity or muscular tenderness. Trachea: No tracheal deviation. Cardiovascular: Rate and Rhythm: Normal rate and regular rhythm. Pulses: Normal pulses. Heart sounds: Normal heart sounds. Pulmonary: Effort: Pulmonary effort is normal. No respiratory distress. Breath sounds: Normal breath sounds. No wheezing. Abdominal: General: Bowel sounds are normal. There is no distension. Palpations: Abdomen is soft. Tenderness: There is no abdominal tenderness. There is no guarding or rebound. Musculoskeletal: Normal range of motion. General: No tenderness. Comments: No clinical signs of DVT. No neck or back tenderness. Lymphadenopathy: Cervical: No cervical adenopathy. Skin: General: Skin is warm and dry. Neurological: General: No focal deficit present. Mental Status: She is alert and oriented to person, place, and time. Cranial Nerves: No cranial nerve deficit. Comments: Muscle strength 5/5 upper and lower extremities bilaterally. Sensation intact bilaterally. Psychiatric: Mood and Affect: Mood normal. Laboratory & Radiographic Imaging (if done): Results for orders placed or performed during the hospital encounter of 03/10/19 Hemoglobin and Hematocrit Result Value Ref Range Hemoglobin 13.0 12.0 - 16.0 g/dL Hematocrit 39.9 36.0 - 46.0 % PT/INR Result Value Ref Range Protime (PT) 12.3 11.8 - 14.3 seconds INR 0.9 0.8 - 1.1 No orders to display Procedures MDM Patient was seen and examined. History and physical exam were completed as above. Patient was lying in the bed in no acute distress. On physical exam, the patient was neurologically intact with no focal neurologic deficits. Muscle strength 5/5 upper and lower extremity's bilaterally. Sensation intact bilaterally. Alert and nontoxic-appearing. Lungs were clear to auscultation bilaterally. Abdomen was soft, nontender, nondistended, bowel sounds are present. No clinical signs of DVT. Symmetric distal pulses. Fresh blood noted in the bilateral nares without sites of active bleeding. Dried blood noted in the posterior oropharynx. No nasal bone tenderness. No septal perforation or hematoma noted. No indication for imaging studies at this time. Lab work was ordered. A 7.5 Rhino Rocket was placed in the right nare after the Rhino Rocket was soaked in Afrin. INR, hemoglobin, and hematocrit were within normal limits. The patient was informed of the findings. Upon reassessment, the patient did not have any active bleeding from her left nare or in her posterior pharynx at this time. The patient had been in the emergency department for over 2 hours. The patient does not have any bleeding noted around the Rhino Rocket. I spoke with Dr. Esparza of ENT regarding the patient and the patient will be given a prescription for Augmentin and follow-up in the office. The patient was informed that it may be early in the course of a disease process and that she should return to the emergency department immediately with any new or worsening symptoms. The patient was discharged with instructions to follow up here in the emergency department for removal of her nasal packing in 48 hours and to follow- up with a primary care physician or to return to the emergency department immediately with any new or worsening symptoms. The patient understood the discharge instructions and agreed with the plan of care. The patient has been informed that they may have pre-hypertension or hypertension based on a blood pressure reading in the Emergency Department. I recommend that the patient call the primary care provider listed on their discharge instructions or a physician of their choice as soon as possible to arrange follow-up in the next 4 weeks for further evaluation of possible pre-hypertension or hypertension. . Clinical Impression: 1. Epistaxis ED Disposition ED Disposition Condition Comment Discharge Stable Tito De La Cruz discharged to home/self care in stable condition. Follow-up Information 1. Jayce Ellis MD. Specialty: Otolaryngology (ENT) Why: to set up follow-up or return to the emergency department immediately with any new or worsening symptoms [id number] [id number] 2. Emily Boudreaux DO. Specialty: Family Medicine [address] [id number] 3. [facility] Emergency Department. Specialty: Emergency Medicine Why: for removal of your nasal packing [address] [phone] Contact information for after-discharge care Follow-up information has not been specified. New Prescriptions amoxicillin-clavulanate (AUGMENTIN) 875-125 mg per tablet Take 1 (one) tablet by mouth 2 (two) times a day for 5 days . Rupa Soto DO 03/10/19 1153 Rupa Soto DO 03/10/19 1153 Rupa Soto, 03/10/19 1204 Arrives to triage with the complaint of a nose bleed that started about 10 minutes ago. 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 States that nose bleed started spontaneously. Patient reports that she had a nose bleed last Thursday. documented in this encounter [facility] EMERGENCY DEPARTMENT PCP - Emily Boudreaux DO Chief Complaint Patient presents with needs rhino rocket removed HPI This is a pleasant 58-year-old female that comes to the emergency department to have her nasal packing removed. It was been present for the past 2 days. She presented to [employer] ED for nosebleed that was nontraumatic she had nasal packing placed. She is on Augmentin. She has a follow-up appointment scheduled in 2 days with an ENT through [facility]. She has been asymptomatic since its insertion. No fever. No complaints. No problems with rebleeding. ROS: Constitutional: no fevers Skin: No rash Eyes: No discharge ENMT: No hemoptysis Genitourinary: no obstructive symptoms Endocrine: no polyuria Neurologic: no new numbness Psychiatric: No hallucinations Hematologic/Lymphatic: No abnormal bruising Allergic/Immunologic: no urticaria All systems reviewed negative except as mentioned above. Past Medical History: Diagnosis Date Arthritis Asthma exercised induced years ago. 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 Social Needs Financial resource strain: Not on file Food insecurity Worry: Not on file Inability: Not on file Transportation needs Medical: Not on file Non-medical: Not on file Tobacco Use Smoking status: Former Smoker Smokeless tobacco: Never Used Tobacco comment: quit in the 70s Substance and Sexual Activity Alcohol use: Yes Alcohol/week: 0.0 standard drinks Comment: Weekends, a few drinks a month Drug use: No Sexual activity: Yes Partners: Male control/protection: Post-menopausal Lifestyle Physical activity Days per week: Not on file Minutes per session: Not on file Stress: Not on file Relationships Social connections Talks on phone: Not on file Gets together: Not on file Attends moravian service: Not on file Active member of club or organization: Not on file Attends meetings of clubs or organizations: Not on file Relationship status: Not on file Other Topics Concern Not on file Social History Narrative Not on file Past Surgical History: Procedure Laterality Date ANKLE SURGERY Left 2012 CERVICAL CONIZATION LOOP ELECTROSURGICAL EXCISION PROCEDURE 2013 COSMETIC SURGERY wt loss facial cyst X 2 last 2011 knee scope Right 1993 MOUTH SURGERY ORIF ANKLE FRACTURE Left 08/17/2014 Procedure: LEFT ANKLE OPEN REDUCTION INTERNAL FIXATION W/ SYNDESMOSIS ; Surgeon: Luis Carlos Landon MD; Location: [facility] [place] Main OR; Service: TONSILLECTOMY AND ADENOIDECTOMY WISDOM TOOTH EXTRACTION Allergies: Clindamycin; Propoxyphene n-acetaminophen; Sulfamethoxazole-trimethoprim; Tetracycline; and Sulfa (sulfonamide antibiotics) Family History Problem Relation Age of Onset Nephrolithiasis Mother Colon polyps Mother Mitral valve prolapse Mother Colon polyps Father Bladder Cancer Father Hypertension Father Nephrolithiasis Brother Hypertension Brother Surgical complications Neg Hx Anesthesia problems Neg Hx Heart disease Neg Hx Clotting disorder Neg Hx Deep vein thrombosis Neg Hx Pulmonary embolism Neg Hx Previous Medications Medication Sig amoxicillin-clavulanate (AUGMENTIN) 875-125 mg per tablet Take 1 (one) tablet by mouth 2 (two) times a day for 5 days . ascorbic acid, vitamin C, (vitamin C) 1000 MG tablet Take 1,000 mg by mouth daily. b complex vitamins capsule Take 1 capsule by mouth daily. diclofenac sodium 1 % Gel Apply 2 (two) g topically 4 (four) times a day . (Patient not taking: Reported on 03/01/2019 .) estradiol (ESTRING) 2 mg (7.5 mcg /24 hour) vaginal ring Insert 1 (one) ring into the vagina every 3 (three) months. (Patient not taking: Reported on 03/01/2019 .) FOLIC ACID ORAL Take by mouth. HYDROcodone-acetaminophen (NORCO) 5-325 mg per tablet Take 1 (one) tablet by mouth every 6 (six) hours as needed for pain . indomethacin (INDOCIN) 25 MG capsule Take 25 mg by mouth 3 (three) times a day with meals. levothyroxine (SYNTHROID, LEVOTHROID) 88 MCG tablet Take 1 (one) tablet (88 mcg total) by mouth once daily . promethazine (PHENERGAN) 25 MG tablet Take 1 (one) tablet (25 mg total) by mouth every 6 (six) hours as needed for nausea . [DISCONTINUED] promethazine (PHENERGAN) 25 MG tablet Take 1 (one) tablet (25 mg total) by mouth every 6 (six) hours as needed for nausea . Physical Exam Vitals signs and nursing note reviewed. Constitutional: General: She is not in acute distress. Appearance: She is well-developed and normal weight. She is not ill-appearing, toxic-appearing or diaphoretic. HENT: Head: Normocephalic and atraumatic. Comments: No blood in the posterior oropharynx Nose: Nose normal. Mouth/Throat: Pharynx: Oropharynx is clear. Eyes: General: No scleral icterus. Conjunctiva/sclera: Conjunctivae normal. Pupils: Pupils are equal, round, and reactive to light. Neck: Musculoskeletal: Normal range of motion and neck supple. Cardiovascular: Rate and Rhythm: Normal rate and regular rhythm. Heart sounds: No murmur. Pulmonary: Effort: Pulmonary effort is normal. No respiratory distress. Breath sounds: Normal breath sounds. No wheezing or rales. Abdominal: General: There is no distension. Palpations: Abdomen is soft. Tenderness: There is no abdominal tenderness. Musculoskeletal: Normal range of motion. Skin: General: Skin is warm and dry. Capillary Refill: Capillary refill takes less than 2 seconds. Findings: No erythema. Neurological: General: No focal deficit present. Mental Status: She is alert and oriented to person, place, and time. Mental status is at baseline. Gait: Gait normal. Psychiatric: Mood and Affect: Mood normal. MEDICAL DECISION MAKING Patient's rapid Rhino was removed with ease. No rebleeding. Patient was tolerating p.o. and ambulatory in the assessment after packing removal without any cautions discussed. The importance of follow-up discussed. All questions answered. The patient has been informed that they may have pre-hypertension or hypertension based on a blood pressure reading in the Emergency Department. I recommend that the patient call the primary care provider listed on their discharge instructions or a physician of their choice as soon as possible to arrange follow-up in the next 4 weeks for further evaluation of possible pre-hypertension or hypertension. . No results found for this visit on 03/12/19. All incidental findings and need for follow up were discussed with the patient. Radiographic Imaging (if any) During ED Visit No orders to display Medications Ordered/Given During ED Visit Medications - No data to display Procedures 1. Encounter for removal of nasal packing Randee Crews M.D. Note: To expedite correspondence this note was generated by [employer] voice recognition software. Randee Crews MD 03/12/19 1206 Pt had nose bleed on and was seen at [facility]. Was told to have rhino rocket removed in 48 hours. Took Ibuprofen and [place] at 1030. documented in this encounter Amira Allison MD - 01/27/2020 7:35 AM EST H&P Notes (unrecognized sect ion and content) GASTROENTEROLOGY OUTPATIENT PRE-PROCEDURE NOTE Patient Name: Tito De La Cruz MR #: [id number] Indication: H/O polyps Brief History: 59 yr. F here for F/U colonoscopy Past Medical History: Past Medical History: Diagnosis Date Arthritis Asthma exercised induced; rare Disease of thyroid gland Fractures left ankle, left knee Hypothyroidism Injury of back sciatica; resolved now Narrow angle glaucoma suspect, bilateral Periodontal disease PONV (postoperative nausea and vomiting) better with scop patch Past Surgical History: Procedure Laterality Date ANKLE SURGERY Left 2012 CERVICAL CONIZATION LOOP ELECTROSURGICAL EXCISION PROCEDURE 2013 COSMETIC SURGERY 1994 TUMMY TUCK facial cyst X 2 last 2011 knee scope Right 1993 MOUTH SURGERY ORIF ANKLE FRACTURE Left 08/17/2014 Procedure: LEFT ANKLE OPEN REDUCTION INTERNAL FIXATION W/ SYNDESMOSIS ; Surgeon: Luis Carlos Landon MD; Location: [facility] [place] Main OR; Service: TONSILLECTOMY AND ADENOIDECTOMY WISDOM TOOTH EXTRACTION Family History Problem Relation Age of Onset Nephrolithiasis Mother Colon polyps Mother Mitral valve prolapse Mother Colon polyps Father Bladder Cancer Father Hypertension Father Nephrolithiasis Brother Hypertension Brother Surgical complications Neg Hx Anesthesia problems Neg Hx Heart disease Neg Hx Clotting disorder Neg Hx Deep vein thrombosis Neg Hx Pulmonary embolism Neg Hx Social History Socioeconomic History Marital status: Spouse name: You Number of children: 0 Years of education: Not on file Highest education level: Not on file 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 Social Needs Financial resource strain: Not on file Food insecurity Worry: Not on file Inability: Not on file Transportation needs Medical: Not on file Non-medical: Not on file Tobacco Use Smoking status: Former Smoker Packs/day: 1.00 Years: 5.00 Pack years: 5.00 Quit date: 02/23/1979 Years since quittin.9 Smokeless tobacco: Never Used Substance and Sexual Activity Alcohol use: Yes Alcohol/week: 0.0 standard drinks Comment: Weekends, a few drinks a month Drug use: No Sexual activity: Yes Partners: Male control/protection: Post-menopausal Lifestyle Physical activity Days per week: Not on file Minutes per session: Not on file Stress: Not on file Relationships Social connections Talks on phone: Not on file Gets together: Not on file Attends moravian service: Not on file Active member of club or organization: Not on file Attends meetings of clubs or organizations: Not on file Relationship status: Not on file Other Topics Concern Not on file Social History Narrative Not on file Allergies: Clindamycin, Propoxyphene n-acetaminophen, Sulfamethoxazole-trimethoprim, Tetracycline, and Sulfa (sulfonamide antibiotics) Home Medications: Outpatient Medications as of 01/27/2020 Medication Sig levothyroxine (SYNTHROID, LEVOTHROID) 88 MCG tablet Take 1 (one) tablet (88 mcg total) by mouth once daily . (Patient taking differently: Take 88 mcg by mouth every morning .) albuterol 90 mcg/actuation inhaler Inhale 2 puffs every 6 (six) hours as needed for wheezing . indomethacin (INDOCIN) 25 MG capsule Take 25 mg by mouth 3 (three) times a day as needed (HEADACHE) . prochlorperazine (COMPAZINE) 10 MG tablet Take 5 mg by mouth every 6 (six) hours as needed for nausea . Review of Systems: The following system(s) were reviewed: GI system reviewed. All other systems were reviewed and are within normal limits. Physical Examination: BP 131/85 Pulse 63 Temp 97.2 F (36.2 C) (Temporal) Resp 12 Ht 5' 7" Wt 81.6 kg (180 lb) SpO2 100% BMI 28.19 kg/m General: NAD; Alert and oriented x3 Lungs: Clear without rales, rhonchi or wheezes; no increased respiratory effort Cardiovascular: RRR; no edema Abdomen: Positive bowel sounds; soft; non tender Skin: No rashes; normal turgor Plan: 1) Will proceed with endoscopic procedure as scheduled. documented in this encounter Yolanda Grimes RN - 01/27/2020 8:45 AM Yolanda Prieto RN - 01/27/2020 8:45 AM Orquidea Delong RN - 01/27/2020 7:05 AM Corin Ricci RN - 01/26/2020 10:54 AM EST Nursing Notes (unrecognized section and content) Pt is alert and oriented x4. On room air with stable vital signs. No complaints of pain or nausea. Pt refuses wheelchair, escorted out by RN to limousine driver You () Discharge teaching and education provided to patient. Pt verbalized understanding, all questions answered. You-/limousine driver In [place] to share post procedure [phone] ENDOSCOPY INSTRUCTIONS Prior to your procedure: ? Arrive at : 0700 ? Follow diet, prep and medication instructions you received from the physician's office; (if you did not receive instructions, call the surgeon's office) ? Medications can be taken with a small sip of water ? No smoking after midnight. ? No alcohol 24 hours prior to your procedure. ? Shower the morning of the procedure with Dial soap or something similar ? Do not apply makeup or lotions. ? Please remove all jewelry and piercings, including wedding rings. ? Please be sure to wear loose, comfortable clothing. ? Leave all valuable items at home. ? Please remember to bring both your insurance card and a photo ID with you on the day of your procedure. ? For parking, use the [employer] (opens at 0800) or the [employer]. A voucher for parking or marketing development manager will be provided to you. ? Enter [facility] and go past [employer]. Pass through the [facility] area. The Endoscopy unit is on the right. After your procedure: ? You must have a licensed limousine driver take you home. ? You are advised to have a family member with you for at least 24 hours after being under Anesthesia. documented in this encounter Care Teams (unrecognized sec tion and content) Fusion Juncture Grinder Relationship Specialty Start Date End Date [facility] PCP - General Family Medicine 01/24/20 Cyrus Link DO [address] [place] [id number] PCP - DAMIEN Attributed Provider - [facility] 02/23/14 02/22/50 Cyrus Link DO [address] [place] [address] PCP - DAMIEN [facility] 02/23/14 02/22/50 Caro Medina MD [address] [place] [address] DAMIEN Attributed Provider - [employer] [facility] Obstetrics/Gynecolog y 01/09/17 Rosana Mandel MD [address] [place] [address] DAMIEN Attributed Provider - [employer] Obstetrics/Gynecolog y 01/13/17 Caro Medina MD [address] [place], [place] [id number] DAMIEN Attributed Provider - Family Medicine Family Medicine 03/19/16 Fusion Juncture Grinder Relationship Specialty Start Date End Date France Hernandez, DO [address] [place] [address] PCP - General Family Medicine 02/24/14 02/24/16 Latia Mai, DO [address] [place] [address] PCP - General Family Medicine 02/25/16 10/29/16 Caro Medina MD [address] [place], [place] [id number] PCP - General Obstetrics/Gynecolog y 10/30/16 12/22/17 Emily Boudreaux, DO [address] [place], [place] [id number] PCP - General Family Medicine 12/23/17 10/13/19 Anny Nguyen MD [address] [place] [address] PCP - General Family Medicine 10/14/19 01/23/20 [facility] PCP - General Family Medicine 01/24/20 Cyrus Link, DO [address] [place] [address] PCP - DAMIEN Attributed Provider - [facility] 02/23/14 02/22/50 Cyrus Link DO [address] [place] [address] PCP - DAMIEN Attributed Provider - [place] [facility] 02/23/14 02/22/50 Caro Medina MD [address] [place] [address] DAMIEN Attributed Provider - [employer] Obstetrics/Gynecolog y 01/09/17 Rosana Mandel MD [address] [place] [address] DAMIEN Attributed Provider - [employer] Obstetrics/Gynecolog y 01/13/17 Caro Medina MD [address] [place] [address] DAMIEN Attributed Provider - Family Medicine Family Medicine 03/19/16 FOR RECORDS PERTAINING TO PATIENTS WHO ARE OR HAVE BEEN ENROLLED IN A CHEMICAL DEPENDENCY/SUBSTANCEABUSE PROGRAM, SOME INFORMATION MAY BE OMITTED. This clinical summary was aggregated from multiple sources. Caution should be exercised in using it in the provision of clinical care. This summary normalizes information from multiple sources, and as a consequence, information in this document may materially change the coding, format and clinical context of patient data. In addition, data may be omitted in some cases. CLINICAL DECISIONS SHOULD BE BASED ON THE PRIMARY CLINICAL RECORDS. [employer] provides no warranty or guarantee of the accuracy or completeness of information in this document.
[2024-12-12 13:08] LABS: Hematocrit 39.6 % (37-47); Hemoglobin 13.2 g/dL (12.0-15.0); Immature Granulocytes Count 0.020 X10^3/uL (0.0-0.0); Mean Corp Hgb Conc 33.3 g/dL (32-36); Mean Corpuscular Volume 94.5 fL (81-99); Mean Platelet Vol. 10.4 fl (6.2-12.0); NRBC Flagged by Analyzer 0 % (0-5); Platelet Count 228 K/mm3 (150-450); RBC Distribution Width CV 13.5 % (11.6-14.6); RBC Distribution Width SD 46.7 fl (35.1-43.9); Red Blood Count 4.19 M/mm3 (4.2-5.4); White Blood Count 5.1 K/mm3 (4.4-11.0)
[2024-12-12 14:12] LABS: AST(SGOT) 20 U/L (<=31); Alanine Aminotransfer ALT/SGPT 13 U/L (<=34); Albumin, Serum 4.6 g/dL (3.4-4.8); Alkaline Phosphatase 96 U/L (35-104); Anion Gap 10 (5-15); BUN 14 mg/dL (4-19); BUN/Creat Ratio 18.1 RATIO (10-20); Calcium,Total 9.8 mg/dL (7.6-11.0); Carbon Dioxide 26.8 mmol/L (21.0-32.0); Chloride 102 mmol/L (98-108); Cholesterol 321 mg/dL (<=200); Free T3 2.4 pg/mL (2.18-3.98); Globulin 2.9 g/dL (2.2-4.2); Glucose 93 mg/dL (70-99); Low Density Lipoprotein Calc. 193 mg/dL; Potassium 4.4 mmol/L (3.3-5.1); Triglycerides 111 mg/dL; Very Low Density Lipoprotein 22 mg/dL (5-40); Vitamin D,25 Hydroxy 33.9 ng/mL (30-100); cholesterol:hdl ratio screen 2.92
== END | disposition home or self-care (01) ==
LOC: LAB 12:24
PROVIDERS: PCP Internal Medicine; Referring Provider Internal Medicine; Visit Provider Internal Medicine
DX: E03.9 Hypothyroidism, unspecified (principal); E55.9 Vitamin D deficiency, unspecified; R73.9 Hyperglycemia, unspecified; Z13.220 Encounter for screening for lipoid disorders
CPT/HCPCS: 36415; 80053; 80061; 82306; 83036; 84439; 84443; 84481; 85025